=== PATIENT | female | born 1950 | race Caucasian/White ===

== ENCOUNTER 2024-01-21 13:58 | Outpatient (CLI) | payer MEDICARE, SELFPAY ==
--- NOTE | ~2024-01-21 | MM_ITS ---
EXAMINATION: MM screening nayla BI w kathryn HISTORY: Screening TECHNIQUE: Craniocaudal and mediolateral oblique 3-D tomosynthesis images were obtained and synthetic 2-D images were generated. CAD analysis was submitted and interpreted. COMPARISON: 07/13/2019 BREAST PARENCHYMAL COMPOSITION: There are scattered areas of fibroglandular density. FINDINGS: There is no evidence of suspicious mass, calcification, or architectural distortion to sugg est malignancy in either breast. There has been no suspicious interval change. IMPRESSION: 1. No mammographic evidence of malignancy. 2. Recommend routine screening mammography in one year. BI-RADS Category 1: Negative Reviewed, dictated and finalized at location B.
== END 2024-01-21 13:59 | disposition home or self-care (01) ==
PROVIDERS: PCP Family Medicine; Visit Provider Family Medicine
DX: Z12.31 Encounter for screening mammogram for malignant neoplasm of breast (principal)
CPT/HCPCS: 77063; 77067

== ENCOUNTER 2025-01-22 10:14 | Emergency (ER) | payer MEDICARE, SELFPAY ==
--- NOTE | ~2025-01-22 | CT_ITS ---
CLINICAL INDICATION: Right-sided low back pain, with history of kidney stones COMPARISON: None. TECHNIQUE: Multiple contiguous axial images of the abdomen and pelvis were performed without the admi nistration of intravenous contrast The dose-length product (DLP) was 851.19 mGy-cm. Automated exposure control and iterative reconstruction technique were employed. FINDINGS/OBSERVATIONS: Visualized lower thorax: Left-sided pleural thickening. The remainder of the bilateral lung bases are clear. The heart is of normal size, without significant pericardial effusion. Small hiatal hernia with circumferential mural thickening is present. Liver: The liver demonstrates homogeneous attenuation and is not enlarged. Gallbladder and biliary system: The gallbladder is only minimally distended, and otherwise unremarkable. Pancreas: Limited evaluation of the pancreas secondary to the lack of intravenous contrast. Spleen: The spleen demonstrates homogeneous attenuation and is not enlarged. Kidneys: 3 mm nonobstructing stone within the lower pole of the right kidney. 2 mm nonobstructing stone within the upper pole of the right kidney. The remainder of the bilateral kidneys are otherwise unremarkable, without hydronephrosis or addition al renal calculi. Adrenal glands: Unremarkable. Gastrointestinal tract: Colonic diverticulosis without surrounding inflammatory change. Appendix: The air-filled appendix is of normal caliber (axial series, images 102 through 121). Vasculature: Calcified atherosclerotic disease without aneurysmal dilatation. Lymph nodes: Limited evaluation without intravenous contrast. Pelvic structures: The bladder is decompressed, limiting evaluation. The uterus is either surgically absent or markedly atrophic. Body wall and musculoskeletal: Age-appropriate degenerative disease within the lower thoracic and lumbosacral spines. IMPRESSION: Nonobstructing subcentimeter calculi within the right kidney without hydronephrosis. Reviewed, dictated and finalized at location A. IMPRESSION: Nonobstructing subcentimeter calculi within the right kidney without hydronephr osis.
[2025-01-22 10:25] VITALS: BP 121/78; PULSE 64; RESP 16; TEMP 36.9; O2SAT 98
--- OUTSIDE RECORDS SUMMARY | 2025-01-22 10:28 | XMS_ITS | CONTINUITY OF CARE DOCUMENT ---
Author Name janie lima Address Unknown Organization [facility] Address [address] [place] [address] Phone [phone] Care Team Providers Care Order Dispatcher Chief Name Role Phone Salinas Al MD Unavailable DANNY ECHOLS MD Unavailable DANNY ECHOLS MD Unavailable PROBLEMS Condition Status Date Provider Notes Cardiology examination active Salinas reynoso MD Hyperlipidemia active Salinas Al MD HTN essential active Salinas Al MD Prediabetes active Salinas Al MD GERD active Salinas Al MD Syncope active Salinas Al MD Hypothyroidism active Salinas Al MD Dyspnea on exertion active Salinas Kelly Chest pain active Salinas Al MD Abnormal EKG active Salinas Al MD Former smoker active Salinas Al MD COPD active aSlinas Al MD Lung nodule, right middle lung active Gustavo Al MD Fatigue active Salinas Al MD ENCOUNTERS Date Type Provider Location Encounter Diag nosis 02/02 - 02/02 In-person encounter Office Visit Salinas Al MD [facility] Fatigue 08/05 - 08/05 In-person encounter Office Visit Salinas Al MD [facility] 02/04 - 02/04 In-person encounter Office Visit Salinas Al MD [facility] 08/06 - 08/06 In-person encounter Office Visit Salinas Al MD [facility] Lung nodule, right middle lung 05/11 - 05/14 In-person encounter Office Visit Salinas Al MD [facility] COPD 03/15 - 03/19 In-person encounter Office Visit Salinas Al MD [facility] Cardiology examinationHyperlipidemiaHTN essentialPrediabetesGERDSyncopeHypothyroidismDyspnea on exertionChest painAbnormal EKGFormer smoker VITAL SIGNS Date Observation Value Provider Body Mass Index (Ratio) 33.41 kg/m2 Claudia Al MD blood pressure, cuff size large Cullen jessesamreen Renteria blood pressure, diastolic 62 mm[facility]Hg[facility][Hg] Tab [facility] oxygen saturation, oximetry 95 % [facility] respiratory rate E&M 12 /min [facility] pulse rate 65 /min [facility] weight E&M 207 [lb_av] [facility] [in_i] [facility] Body Mass Index (Ratio) 33.25 kg/m2 Claudia Al MD blood pressure, diastolic 71 mm[Hg] Kathie [facility] blood pressure, systolic 135 mm[Hg] Meghan [facility] blood pressure, diastolic 71 mm[Hg] Kathie Log blood pressure, systolic 135 mm[Hg] [facility] blood pressure, diastolic 71 mm[Hg] [facility] blood pressure, systolic 135 mm[Hg] [facility] blood pressure, cuff size regular Dale hendrickson Renteria blood pressure, diastolic 71 mm[Hg] Dale hendrickson Renteria blood pressure, systolic 135 mm[Hg] Wilner Renteria oxygen saturation, oximetry 98 % Patience Renteria respiratory rate E&M 16 /min Patience juarez pulse rate 64 /min Patience Renteria weight E&M 206 [lb_av] Patience Renteria height E&M 66 [in_i] Patience Renteria Body Mass Index (Ratio) 33.89 kg/m2 Claudia Al MD pulse rate 75 /min Jinny Leger blood pressure, diastolic 54 mm[Hg] Richard Leger blood pressure, systolic 146 mm[Hg] Khushboo Leger weight E&M 210 [lb_av] Jinny Leger blood pressure, cuff size regular Richard Leger oxygen saturation, oximetry 96 % Jinny Leger respiratory rate E&M 18 /min Jinny Leger height E&M 66 [in_i] Jinny Leger Body Mass Index (Ratio) 33.63 kg/m2 Claudia Al MD blood pressure, diastolic 66 mm[Hg] St alecia Uribe blood pressure, systolic 134 mm[Hg] Eva Uribe oxygen saturation, oximetry 97 % Fiona Uribe pulse rate 64 /min Fionakobi Uribe respiratory rate E&M 16 /min Fiona hyde weight E&M 208.4 [lb_av] Fionakobi Uribe height E&M 66 [in_i] Fiona Uribe Body Mass Index (Ratio) 33.57 kg/m2 Claudia Al MD blood pressure, cuff size regular Emily Weston blood pressure, diastolic 85 mm[Hg] Emily Weston blood pressure, systolic 148 mm[Hg] Antonieta Weston respiratory rate E&M 18 /min Ashley Weston oxygen saturation, oximetry 97 % Ashley Weston pulse rate 73 /min Ashley Weston weight E&M 208 [lb_av] Ashley Weston height E&M 66 [in_i] Ashley Weston Body Mass Index (Ratio) 33.25 kg/m2 Claudia Al MD blood pressure, cuff size large Mariano rri Ahsan blood pressure, diastolic 69 mm[Hg] Mariano rri Ahsan blood pressure, systolic 119 mm[Hg] Leroy javi Foreman oxygen saturation, oximetry 95 % Africa Foreman respiratory rate E&M 16 /min Africa jennings pulse rate 58 /min Africa Ellis lder weight E&M 206 [lb_av] [facility] Ellis lder height E&M 66 [in_i] Africa Ellis lder ALLERGIES No Known Drug Allergies HISTORY OF MEDICATION USE Medication Status Instructions Dates Provider Indications Com ments carvedilol 6.25 mg tablet active TAKE 1 TABLET BY MOUTH TWICE DAILY Erica Rusadam Spiriva Respimat 1.25 mcg/actuation mist active Salinas Al MD Myrbetriq 50 mg tablet extended release 24 hr active Salinas Al MD ezetimibe 10 mg tablet active TAKE 1 TABLET BY MOUTH EVERY DAY Zach Nolasco ezetimibe 10 mg tablet completed Take 1 tablet by mouth once a day - Richard Chase albuterol sulfate 90 mcg/actuation HFA aerosol inhaler completed - Nell Renteria amlodipine-benaz epril 10-20 mg capsule active Take 1 capsule by mouth once a day Salinas Al MD atorvastatin 40 mg tablet active Take 1 tablet by mouth once a day Africa Foreman carvedilol 6.25 mg tablet completed Take 1 tablet by mouth twice a day - Richard stevan celecoxib 200 mg capsule active Take 1 capsule by mouth twice a day Africa Foreman escitalopram oxalate 5 mg tablet active Take 1 tablet by mouth once a day Africa Foreman gabapentin 300 mg capsule active Take 1 capsule by mouth every night Africa Foreman levothyroxine 88 mcg tablet active Take 1 tablet by mouth once a day Africa Foreman metformin 500 mg tablet active Take 1 tablet by mouth twice a day Africa Foreman omeprazole 40 mg capsule,delayed release(DR/EC) active Take 1 capsule by mouth once a day Africa Foreman phentermine 37.5 mg tablet active as directed TAKE 1 TABLET BY MOUTH EVERY DAY Africa Foreman aspirin 81 mg tablet,delayed release (DR/EC) active Take 1 tablet by mouth once a day Africa Foreman SOCIAL HISTORY Date Observation Value Provider smoking status Never smoker Salinas reynoso MD smoking status Never smoker Patience Renteria number of grandchildren Salinas Al MD social history E&M S moking History: Ninoska padilla has never smoked. Salinas Al MD social history reviewed E&M revi ewed - no changes required Salinas Al MD smoking status Never smoker Jinny Leger social history E&M S moking History: Ninoska padilla is a former smoker. Salinas Al MD social history reviewed E&M revi ewed - no changes required Salinas Al MD smoking, year quit 2009 Fionakobi Chaudhari is number of years as a smoker 40 a Fiona Uribe smoking history, tot al pack/day 1.5 ppd Fiona Uribe cigarette use yes Fiona Uribe smoking status Former smoker Fiona Uribe social history E&M S moking History: Ninoska padilla is a former smoker. Salinas Al MD smoking, year quit 2009 Salinas waterman MD number of years as a smoker 40 a Salinas Al MD smoking history, tot al pack/day 1.5 ppd Salinas Al MD cigarette use yes Salinas Al MD smoking status Former smoker Salinas Colon ra, MD social history reviewed E&M revi ewed - no changes required Salinas Al MD social history E&M S moking History: Ninoska padilla is a former smoker. Salinas Al MD social history reviewed E&M revi ewed - no changes required Salinas Al MD number of years as a smoker 40 a Africa Hammnia smoking history, tot al pack/day 1.5 ppd Africa Foreman smoking, year quit 2009 Africa Hanseldarshana cai cigarette use yes Africa Pfeiffer elder smoking status Former smoker Africa whiteelder INSURANCE PROVIDERS Payer name Policy type / Coverage type Duncan red republican ID A[employer] [facility] ADVANTAGE PLAN 2 (HMO-POS) Medicare [id number] ADVANCE DIRECTIVES Name Date DISCUSSED - NO DECISION MADE TREATMENT PLAN Date Name Performer [id number],S, Salinas Colon ra, [place] [id number],S, Salinas Colon ra, [place] [id number],S, Salinas Colon ra[place] [id number],B, Salinas Colon ra[place] [id number],W, B P today: 146/54 P rior BP: 134/66 (08/06/2022) Her updated medication list for this problem includes: Carvedilol 6.25 Mg Tablet (Carvedilol) ..... Take 1 tablet by mouth twice a day Amlodipine-benazepril 5-20 Mg Capsule (Amlodipine-benazepril) ..... Take 1 capsule by mouth once a day Aspirin 81 Mg Tablet,delayed Release (dr/ec) (Aspirin) ..... Take 1 tablet by mouth once a day Salinas Al MD [id number],S, H er updated medication list for this problem includes: Ezetimibe 10 Mg Tablet (Ezetimibe) ..... Take 1 tablet by mouth once a day Atorvastatin 40 Mg Tablet (Atorvastatin) ..... Take 1 tablet by mouth once a day Salinas Al MD [id number],BSalinas ra, MD [id number],SSalinas ra, [place] [id number],BSalinas ra, [place] [id number],B, B P today: 134/66 P rior BP: 148/85 (05/11/2022) Her updated medication list for this problem includes: Carvedilol 6.25 Mg Tablet (Carvedilol) ..... Take 1 tablet by mouth twice a day Amlodipine-benazepril 5-20 Mg Capsule (Amlodipine-benazepril) ..... Take 1 capsule by mouth once a day Aspirin 81 Mg Tablet,delayed Release (dr/ec) (Aspirin) ..... Take 1 tablet by mouth once a day Salinas Al MD [id number],BSalinas ra, MD [id number],S, H er updated medication list for this problem includes: Ezetimibe 10 Mg Tablet (Ezetimibe) ..... Take 1 tablet by mouth once a day Atorvastatin 40 Mg Tablet (Atorvastatin) ..... Take 1 tablet by mouth once a day Salinas Al MD [id number],SSalinas ra, MD [id number],SSalinas ra, MD [id number],SSalinas ra, MD [id number],W, B P today: 148/85 P rior BP: 119/69 (03/15/2022) Her updated medication list for this problem includes: Amlodipine-benazepril 5-20 Mg Capsule (Amlodipine-benazepril) ..... Take 1 capsule by mouth once a day Carvedilol 3.125 Mg Tablet (Carvedilol) ..... Take 1 tablet by mouth twice a day Aspirin 81 Mg Tablet,delayed Release (dr/ec) (Aspirin) ..... Take 1 tablet by mouth once a day Salinas Al MD [id number],B, H er updated medication list for this problem includes: Amlodipine-benazepril 5-20 Mg Capsule (Amlodipine-benazepril) ..... Take 1 capsule by mouth once a day Carvedilol 3.125 Mg Tablet (Carvedilol) ..... Take 1 tablet by mouth twice a day Aspirin 81 Mg Tablet,delayed Release (dr/ec) (Aspirin) ..... Take 1 tablet by mouth once a day Salinas Al MD [id number],N, Salinas Colon ra, MD [id number],S, Salinas Colon ra, MD [id number],S, H er updated medication list for this problem includes: Amlodipine-benazepril 5-20 Mg Capsule (Amlodipine-benazepril) ..... Take 1 capsule by mouth once a day Carvedilol 3.125 Mg Tablet (Carvedilol) ..... Take 1 tablet by mouth twice a day Aspirin 81 Mg Tablet,delayed Release (dr/ec) (Aspirin) ..... Take 1 tablet by mouth once a day Salinas Al MD [id number],S, Salinas Colon ra, MD [id number],S, Salinas Colon ra, MD [id number],S, Salinas Colon ra, MD [id number],W, H er updated medication list for this problem includes: Amlodipine-benazepril 5-20 Mg Capsule (Amlodipine-benazepril) ..... Take 1 capsule by mouth once a day Carvedilol 3.125 Mg Tablet (Carvedilol) ..... Take 1 tablet by mouth twice a day Aspirin 81 Mg Tablet,delayed Release (dr/ec) (Aspirin) ..... Take 1 tablet by mouth once a day Salinas Al MD [id number],SSalinas ra, MD [id number],S, H er updated medication list for this problem includes: Atorvastatin 40 Mg Tablet (Atorvastatin) ..... Take 1 tablet by mouth once a day Salinas Al MD [id number],S, B P today: 119/69 Her updated medication list for this problem includes: Amlodipine-benazepril 5-20 Mg Capsule (Amlodipine-benazepril) ..... Take 1 capsule by mouth once a day Carvedilol 3.125 Mg Tablet (Carvedilol) ..... Take 1 tablet by mouth twice a day Aspirin 81 Mg Tablet,delayed Release (dr/ec) (Aspirin) ..... Take 1 tablet by mouth once a day Salinas Al MD Cardiology:11/13/23: Total CHOL 154, LDL 61, HDL 63, trigs 148. A1C was 6.6%. CMP was unremarkable. Her updated medication list for this problem includes: Ezetimibe 10 Mg Tablet (Ezetimibe) ..... Take 1 tablet by mouth every day Atorvastatin 40 Mg Tablet (Atorvastatin) ..... Take 1 tablet by mouth once a day Salinas Al MD Cardiology: W ill check home sleep study. She complains of fatigue and has already been worked up from a cardiovascular standpoint. Salinas Al MD Cardiology: B P today: 120/62 P rior BP: 135/71 (08/05/2023) Her updated medication list for this problem includes: Carvedilol 6.25 Mg Tablet (Carvedilol) ..... Take 1 tablet by mouth twice daily Amlodipine-benazepril 10-20 Mg Capsule (Amlodipine-benazepril) ..... Take 1 capsule by mouth once a day Aspirin 81 Mg Tablet,delayed Release (dr/ec) (Aspirin) ..... Take 1 tablet by mouth once a day Salinas Al MD Cardiology: N o evidence of nodule on recent lung CT from July Salinas Al MD Cardiology Salinas Kelly Cardiology Salinas Kelly Cardiology Salinas Kelly Cardiology: H er updated medication list for this problem includes: Ezetimibe 10 Mg Tablet (Ezetimibe) ..... Take 1 tablet by mouth every day Atorvastatin 40 Mg Tablet (Atorvastatin) ..... Take 1 tablet by mouth once a day Salinas Al MD Cardiology: B P today: 135/71 P rior BP: 146/54 (02/04/2023) Her updated medication list for this problem includes: Amlodipine-benazepril 10-20 Mg Capsule (Amlodipine-benazepril) ..... Take 1 capsule by mouth once a day Carvedilol 6.25 Mg Tablet (Carvedilol) ..... Take 1 tablet by mouth twice a day Aspirin 81 Mg Tablet,delayed Release (dr/ec) (Aspirin) ..... Take 1 tablet by mouth once a day Salinas Al MD Cardiology Salinas Kelly Cardiology Salinas Kelly Cardiology Salinas Kelly Cardiology Salinas Kelly Cardiology Salinas Kelly Cardiology: B P today: 146/54 P rior BP: 134/66 (08/06/2022) Her updated medication list for this problem includes: Carvedilol 6.25 Mg Tablet (Carvedilol) ..... Take 1 tablet by mouth twice a day Amlodipine-benazepril 5-20 Mg Capsule (Amlodipine-benazepril) ..... Take 1 capsule by mouth once a day Aspirin 81 Mg Tablet,delayed Release (dr/ec) (Aspirin) ..... Take 1 tablet by mouth once a day Salinas Al MD Cardiology: H er updated medication list for this problem includes: Ezetimibe 10 Mg Tablet (Ezetimibe) ..... Take 1 tablet by mouth once a day Atorvastatin 40 Mg Tablet (Atorvastatin) ..... Take 1 tablet by mouth once a day Salinas Al MD Cardiology Salinas Kelly Cardiology Salinas Kelly Cardiology Salinas Kelly Cardiology: B P today: 134/66 P rior BP: 148/85 (05/11/2022) Her updated medication list for this problem includes: Carvedilol 6.25 Mg Tablet (Carvedilol) ..... Take 1 tablet by mouth twice a day Amlodipine-benazepril 5-20 Mg Capsule (Amlodipine-benazepril) ..... Take 1 capsule by mouth once a day Aspirin 81 Mg Tablet,delayed Release (dr/ec) (Aspirin) ..... Take 1 tablet by mouth once a day Salinas Al MD Cardiology Salinas Kelly Cardiology: H er updated medication list for this problem includes: Ezetimibe 10 Mg Tablet (Ezetimibe) ..... Take 1 tablet by mouth once a day Atorvastatin 40 Mg Tablet (Atorvastatin) ..... Take 1 tablet by mouth once a day Salinas Al MD Cardiology Salinas Kelly Cardiology Salinas Kelly Cardiology Salinas Kelly Cardiology: B P today: 148/85 P rior BP: 119/69 (03/15/2022) Her updated medication list for this problem includes: Amlodipine-benazepril 5-20 Mg Capsule (Amlodipine-benazepril) ..... Take 1 capsule by mouth once a day Carvedilol 3.125 Mg Tablet (Carvedilol) ..... Take 1 tablet by mouth twice a day Aspirin 81 Mg Tablet,delayed Release (dr/ec) (Aspirin) ..... Take 1 tablet by mouth once a day Salinas Al MD Cardiology: H er updated medication list for this problem includes: Amlodipine-benazepril 5-20 Mg Capsule (Amlodipine-benazepril) ..... Take 1 capsule by mouth once a day Carvedilol 3.125 Mg Tablet (Carvedilol) ..... Take 1 tablet by mouth twice a day Aspirin 81 Mg Tablet,delayed Release (dr/ec) (Aspirin) ..... Take 1 tablet by mouth once a day Salinas Al MD Cardiology Salinas Kelly Cardiology Salinas Kelly Cardiology: H er updated medication list for this problem includes: Amlodipine-benazepril 5-20 Mg Capsule (Amlodipine-benazepril) ..... Take 1 capsule by mouth once a day Carvedilol 3.125 Mg Tablet (Carvedilol) ..... Take 1 tablet by mouth twice a day Aspirin 81 Mg Tablet,delayed Release (dr/ec) (Aspirin) ..... Take 1 tablet by mouth once a day Salinas Al MD Cardiology Salinas Kelyl Cardiology Salinas Kelly Cardiology Salinas Kelly Cardiology: H er updated medication list for this problem includes: Amlodipine-benazepril 5-20 Mg Capsule (Amlodipine-benazepril) ..... Take 1 capsule by mouth once a day Carvedilol 3.125 Mg Tablet (Carvedilol) ..... Take 1 tablet by mouth twice a day Aspirin 81 Mg Tablet,delayed Release (dr/ec) (Aspirin) ..... Take 1 tablet by mouth once a day Salinas Al MD Cardiology Salinas Kelly Cardiology: H er updated medication list for this problem includes: Atorvastatin 40 Mg Tablet (Atorvastatin) ..... Take 1 tablet by mouth once a day Salinas Al MD Cardiology: B P today: 119/69 Her updated medication list for this problem includes: Amlodipine-benazepril 5-20 Mg Capsule (Amlodipine-benazepril) ..... Take 1 capsule by mouth once a day Carvedilol 3.125 Mg Tablet (Carvedilol) ..... Take 1 tablet by mouth twice a day Aspirin 81 Mg Tablet,delayed Release (dr/ec) (Aspirin) ..... Take 1 tablet by mouth once a day Salinas Al MD Date Name Sleep Study Home Low Dose Lung CT LIPID PANEL LIPID PANEL Low Dose Lung CT Low Dose Lung CT DLCO - 85196 FRC - 54062 FVC - 84703 Monitor - Telemetry (Mobile Cardiac) Stress Regadenoson Complete Echo TSH, 3RD GENERATION W/REFLEX TO FT4 LIPID PANEL HISTORY OF PROCEDURES Procedure Date Procedure Name Provider Procedure Notes S tatus Counseling LDCT Salinas Al MD co mpleted Counseling LDCT Salinas Al MD co mpleted Spirometry Salinas Al MD complet ed FVC / MVV with bronchodilator - 88657 Salinas Al MD completed 6 minute walk test Salinas Al MD completed FRC - 16310 Salinas Al MD comple sara SpO2 w/o 6min walk/titration Salinas Al MD completed SVC - 54847 Salinas Al MD comple sara DLCO - 75967 Salinas Al MD compl eted Counseling LDCT Salinas Al MD co mpleted EKG Salinas Al MD complet ed
--- OUTSIDE RECORDS SUMMARY | 2025-01-22 10:29 | XMS_ITS | Continuity of Care Document ---
Author Organization [facility] Address [address] [place] [address] Phone Care Team Providers Care Felt Cementer Name Role Phone Meryl Kay MD Unavailable Unavailable Allergies, Adverse Reactions, Alerts Substance Reaction Status Criticality niacin Unknown Active No Information Medications Medication Instructions Dosage Effective Dates (start - stop) Status Comments prednisolone acetate 1 % eye drops,suspension instill 1 drop by ophthalmic route 4 times every day into affected eye(s) 1 drop - Active lisinopril 20 mg tablet for Hypertension - Active carvedilol 6.25 mg tablet for Hypertension - Active metformin 500 mg tablet for Diabetes - Act aidan levothyroxine 100 mcg tablet for Thyroid - Active atorvastatin 80 mg tablet for Cholesterol - Active citalopram 10 mg tablet for Depression - A ctive aspirin 81 mg chewable tablet chew 1 tablet by oral route every day for Heart health 81 MG - Active Procedures Procedure Date POSTOP FOLLOW-UP VISIT POSTOP FOLLOW-UP VISIT POSTOP FOLLOW-UP VISIT POSTOP FOLLOW-UP VISIT POSTOP FOLLOW-UP VISIT CATARACT SURG W/IOL, 1 STAGE CATARACT SURG W/IOL, 1 STAGE POSTOP FOLLOW-UP VISIT POSTOP FOLLOW-UP VISIT CATARACT SURG W/IOL, 1 STAGE CATARACT SURG W/IOL, 1 STAGE PRED BROM Shipping Fee OPHTHALMIC DIAGNOSTIC IMAGING-[facility] Jul NEW PT COMP E&M ESTABLISHED PAT INTER ROUTINE EXAM Oct-0 REFRACTION NEW PATIENT COMPLEX ROUTINE EXAM 2016 Advance Directives Directive Yes / No Effective Date File Name No Information Encounters Encounter Description Practice Location Reason(s) For Visit Diagnoses Date Provider Providers Copied on Encounter [facility], [address], [place], [place], [id number], [place] tel:[phone] [facility] [place] vision is improved (chief complaint) Presence of intraocular lens Apr-1 9-201 9 Eliza Meryl. [address], [place], [place], [id number], [place]. tel:[phone] Referring Provider: Salinas Fowler [address] [place], [address]. tel:[phone] [facility], [address], [place], [place], [id number], [place] tel:[phone] [facility] [place] Post Op Examination (chief complaint)fl uctuating vision (chief complaint) Presence of intraocular lens Mar-2 0-201 9 Eliza Meryl. [address], [place], [place], [id number], [place]. tel:[phone] Referring Provider: Salinas Fowler, [address] [facility], [place], [address]. tel:[phone] [facility], [address], [place], [place], [id number], [place] tel:[phone] [facility] [place] Post Op Examination (chief complaint)gl ossy vision x 2 days (chief complaint) Presence of intraocular lens Mar-0 6-201 9 Eliza Meryl. [address], [place], [place], [id number], [place]. tel:[phone] Referring Provider: Salinas Fowler, [address] [facility], [place], [address]. tel:[phone] [facility], [address], [place], [place], [id number], [place] tel:[phone] [facility] [place] no complaints (chief complaint) Presence of intraocular lens 9 Eliza Sheth. [address], [place], [place], [id number], [place]. tel:[phone] Referring Provider: Salinas Fowler, [address] [facility], [place], [address]. tel:[phone] [facility], [address], [place], [place], [id number], [place] tel:[phone] [facility] no complaints (chief complaint) Presence of intraocular lens 9 Eliza Sheth. [address], [place], [place], [id number], [place]. tel:[phone] [facility], [address], [place], [place], [id number], [place] tel:[phone] [facility] Age-related nuclear cataract, left eye 9 Eliza Sheth. [address], [place], [place], [id number], [place]. tel:[phone] Referring Provider: Mercedes Arias, [address], [place], [address] tel:[phone] [facility], [address], [place], [place], [id number], [place] tel:[phone] [facility] Age-related nuclear cataract, bilateral 9 [facility]. [address], [place], [place], [id number], [place]. tel:[phone] Referring Provider: Meryl Bajwa, [address], [place], [address]. tel:[phone] [facility], [address], [place], [place], [id number], [place] tel:[phone] [facility] no complaints (chief complaint) Presence of intraocular lens 9 Eliza Sheth. [address], [place], [place], [id number], [place]. tel:[phone] Referring Provider: Salinas Fowler, [address], [place], [address]. tel:[phone] [facility], [address], [place], [id number], [place] tel:[phone] [facility] blurry vision (chief complaint) Presence of intraocular lens 9 Eliza Sheth. [address], [place], [place], [id number], [place]. tel:[phone] [facility], [address], [place], [place], [id number], [place] tel:[phone] [facility] trouble with glare (chief complaint)tr ouble reading (chief complaint)tr ouble seeing at night (chief complaint) Age-related nuclear cataract, right eye 9 Eliza Sheth. [address], [place], [place], [id number], [place]. tel:[phone] Referring Provider: Mercedes Arias, [address], [place], [address] tel:[phone] [facility], [address], [place], [place], [id number], [place] tel:[phone] [facility] Age-related nuclear cataract, bilateral 9 [facility]. [address], [place], [place], [id number], [place]. tel:[phone] Referring Provider: Meryl Bajwa, [address], [place], [address]. tel:[phone] [facility], [address], [place], [place], [id number], [place] tel:[phone] [facility] No Information [facility]. [address], [place], [place], [id number], [place]. tel:[phone] [facility], [address], [place], [place], [id number], [place] tel:[phone] [facility] No Information No Information Referring Provider: Salinas Fowler [address] [facility], [place], [address]. tel:[phone] NEW PT COMP E&M [facility], [address], [place], [place], [id number], [place] tel:[phone] [facility] cloudy vision (chief complaint)gl ivette all the time (chief complaint)di abetes (chief complaint)cl oudy vision (chief complaint)gl ivette all the time (chief complaint)di abetes (chief complaint) Age-related nuclear cataract, bilateralPre sbyopiaType 2 diabetes mellitus without complication sMacular cyst, hole, or pseudohole, right eyeVitreomac ular adhesion, left eyeBenign neoplasm of left choroid 8 Eliza Sheth. [address], [place], [place], [id number], [place]. tel:[phone] Referring Provider: Salvatore Montoya S , [place], [address]. tel:[phone] [facility], [address], [place], [place], [id number], [place] tel:[phone] [facility] dry eye F/U (chief complaint)dr corrales eye F/U (chief complaint) Punctate keratitis, bilateral Oct-0 7 No Information Referring Provider: Salinas Fowler [address] [place], [address]. tel:[phone] [facility], [address], [place], [place], [id number], [place] tel:[phone] [facility] Diabetes Type II (chief complaint)fi lm over eyes (chief complaint)gl are at night (chief complaint)Di abetes Type II (chief complaint)fi lm over eyes (chief complaint)gl are at night (chief complaint) PresbyopiaAg e-related nuclear cataract, bilateralTyp e 2 diabetes mellitus without complication sPunctate keratitis, bilateral Sep-2 7 No Information Referring Provider: Salinas Fowler [address] [place], [address]. tel:[phone] Family History Family Member Type Diagnosis Age At Onset Problem (finding) Family history of Diabe davina mellitus Immunizations Vaccine Date Status Comments Flu (split) (3 yrs or older) administered Source: Other Provider Payers Payer name Insurance type Covered republican ID Authoriza tion(s) No Information Social History Type Description Quantity Date Captured Comments Sex Female Smoking Status No Information Chief Complaint And Reason For Visit From encounter dated '12/12/2018 08:50'. vision is improved (chief complaint) Reason For Referral Reason For Referral No Information Plan Of Treatment Date Type Action Status Goal Tobacco cessation counseling completed Goal Tobacco cessation counseling completed Referral Referred To: León Michaels [address] [place], [id number] Ordered: Referrals: [facility]. León Michaels Evaluate and treat Appointment date/timeframe: 08/20/2018 ordered History Of Present Illness Encounter Date Complaint History Of Prese nt Illness cloudy vision The 68 Year old female presents for evaluation of cloudy vision in the right eye and left eye. The onset was gradual. It affects both near and far vision. The symptom is constant. It occurs with no pattern. The condition is significant. The condition is described as blurring. In addition, the condition is associated with daily activity and chores. Glucose/A1C Doctor checksPCP Dr. Salinas Sexton . diabetes The patient comp lains of diabetes It affects distance vision. The symptom is constant. It occurs with no pattern. Sees Dr. Fowler . glares all the time The patient complains of glares all the time in the right eye and left eye. The onset was gradual. It affects OU. The symptom is frequent. It occurs with no pattern. The condition is significant. The condition is described as having glare. In addition,the condition is associated with bright light. dry eye F/U The 67 Year old female presents for evaluation of dry eye F/U in the right eye and left eye. Pt has been compliant with ATs. Eyes are getting better. Pt in interested in cat surgery. Would like to speak with a cat counselor after seeing the doctor.. film over eyes The patient comp lains of film over eyes in the right eye and left eye. It affects OU. The symptom is frequent. It occurs in the morning. The condition is mild. glare at night The patient comp lains of glare at night in the right eye and left eye. It affects both near and far vision. The symptom is frequent. It occurs at night. The condition is mild. The condition is described as having glare. Diabetes Type II The 67 Year old female presents for evaluation of Diabetes Type II in the right eye and left eye. It affects Unsure. The symptom is constant. Last A1C was 6.1. Functional Status Date Functional Assessmen t No Information Instructions Date Instruction Additional Infor mation Schedule cat sx OU Related to Ag e-related nuclear cataract, bilateral Refer to retinal spe cialist for clearance prior to cat sx OU Related to Macular cyst, hole, or pseudohole, right eye Impression/Plan Related to Vitre omacular adhesion, left eye Impression/Plan Related to Age-r elated nuclear cataract, bilateral Impression/Plan Related to Presb yopia Impression/Plan Related to Type 2 diabetes mellitus without complications Impression/Plan Related to Macul ar cyst, hole, or pseudohole, right eye Impression/Plan Related to Benig n neoplasm of left choroid - --monitor--AT's qid ou Related to Punctate keratitis, bilateral - Rtc in 6mon forVCMaliha w/ i Related to Punctate keratitis, bilateral - New glasses Rx was given today . Related to Presbyopia - pt decline cat sx Related to A ge-related nuclear cataract, bilateral - Emphasized blood s ugar control. LEtter sent to Dr. Fowler Related to Type 2 diabetes mellitus without complications - Patient instructed to use artificial tears as needed. Related to Punctate keratitis, bilateral - 3 weeks for follow up on drye eys with dr mcmanus Related to Type 2 diabetes mellitus without complications Assessments Type Assessment Date assessment Presence of intraocular lens Nov Patient Care Teams Name Effective Dates (start - stop) Status Members No Information
--- OUTSIDE RECORDS SUMMARY | 2025-01-22 10:29 | XMS_ITS | Continuity of Care Document ---
Author Organization [facility] Address [address] [place] [address] Phone Care Team Providers Care Tool Smith Name Role Phone No Information Unavailable Unavailable Advance Directives Directive Yes / No Effective Date File Name No Information Encounters Encounter Description Practice Location Reason(s) For Visit Diagnoses Date Provider Providers Copied on Encounter [facility], [address], [place], [place], [id number] , [phone] No Information 0 0 No Information [facility], [address], [place], [place], [id number] , tel:[phone] [facility] Calculus of kidneyFrequency of micturitionUrgency of urination Apr-2 6201 6 Seun Beltre. [address], [id number], [place]. tel:[phone] Referring Provider: Alexsander Banks, [address], [address] . tel:[phone] Family History Family Member Type Diagnosis Age At Onset No Information Payers Payer name Insurance type Covered constitution party ID Authorhoracea darío(s) [facility] [id number] Social History Type Description Quantity Date Captured Comments Sex Female Smoking Status No Information Chief Complaint And Reason For Visit No Information Reason For Referral Reason For Referral No Information History Of Present Illness Encounter Date Complaint History Of Prese nt Illness No Information Functional Status Date Functional Assessmen t No Information Instructions Date Instruction Additional Infor mation No Information Assessments Type Assessment Date No Information Patient Care Teams Name Effective Dates (start - stop) Status Members No Information
--- OUTSIDE RECORDS SUMMARY | 2025-01-22 10:29 | XMS_ITS | Data Portability ---
Author Organization [place] [facility], Main Office Address [address] [place] [address] Care Team Providers Care Buffet Attendant Name Role Phone DANNY DUBON Primary Care Provider [phone] DANNY DUBON Referring Provider Assessment Encounter Date Assessment Date Assessment LastModified by Organization Details LastModified Time 08/30/2023 08/30/2023 HPI: Patient returns. She is here for cortisone injection left knee. Last shot was 3 months ago. She gets excellent relief for over 2 months. She has moderate to moderately severe medial osteoarthritis. She wishes to continue injections. Physical exam: 73-year-old female alert pleasant. She has mild effusion left knee. Range of motion is from 0-135 degrees. Qvcv-pa-[id number] tenderness over medial joint line palpation. No increased swelling in either extremity. After ChloraPrep was used on the skin 20 mg of Kenalog and 3 cc of 0.5% ropivacaine was injected into the left knee. Impression: 73 year female who has moderately severe medial compartment osteoarthritis left knee. Shots continue to give her good relief. We will see her in 3 months. [email or web address] Not available 08/30/2023 12:01:38 12/09/2023 12/09/2023 HPI: Patient returns. She is here for cortisone injection into the left knee. Last shot was 3 months ago. She gets about 2 months good relief. She has severe medial compartment osteoarthritis in left knee. She wished to have another injection today. Physical exam 73-year-old female she has a moderate effusion left knee. Range motion is from 0-135 degrees. Moderate tenderness over the medial joint line to palpation. Mild patellofemoral grind. No increased swelling in either lower extremity. Alcohol prep 20 mg Kenalog and 3 cc of 0.5% ropivacaine was injected into the left knee. Impression: 73-year-old female who has severe medial compartment osteoarthritis left knee. Shots continue to give her good relief. We will see her in 3 months. [email or web address] Not available 12/09/2023 15:32:32 Plan of Treatment Reminders Order Date Submit Date Provider Last Modified By Organization Details Last Modified Time Details Appointments None recorded. Lab urinalysis, dipstick 2023 024 [facility] [address], [place], [address], 4 11:20:39 urinalysis complete, reflex culture [address], [address] [place], [address], 4 11:21:49 lipid panel, serum [address], [address] [place], [address], 4 11:23:27 TSH + free T4, serum [address], [address] [place], [address], 4 11:23:40 CBC [address], [address] [place], [address], 4 11:23:52 HbA1c (hemoglobin A1c), blood [address], [address] [place], [address], 4 11:22:14 CMP, serum or plasma [address], [address] [place], [address], 4 11:22:30 HbA1c (hemoglobin A1c), blood 2023 024 [email or web address] Not available 4 00:21:40 BMP, serum or plasma 2023 024 [email or web address] Not available 4 20:44:41 lipid panel, serum 2023 024 [email or web address] Not available 4 20:44:46 hepatic function panel, serum 2023 024 [email or web address] Not available 4 20:44:56 CBC w/ auto diff 2023 [email or web address] Not available 4 19:41:29 TSH, serum or plasma 2023 024 [email or web address] Not available 4 20:49:19 Referral neurologist referral - Please call patient to schedule an appointment . Thank you. 2023 024 [email or web address] Will Anderson MD, 3 [facility], [address], [address], 4 09:17:29 hand surgeon referral - Please call patient to schedule an appointment . 2023 024 [email or web address] [facility], [address], [place], [address], 4 09:16:28 Procedures injection/a spiration joint/bursa (PROC) - in office procedure, administere d by provider 2023 024 [email or web address] In-Office Order, Internal Use Only DO Not Attach Compendium DO Not Attach Compendium, Do Not Delete/merge, [id number] 4 14:13:13 injection/a spiration joint/bursa (PROC) - in office procedure, administere d by provider 2023 024 [email or web address] In-Office Order, Internal Use Only DO Not Attach Compendium DO Not Attach Compendium, Do Not Delete/merge, [id number] 4 11:33:11 Surgeries None recorded. Imaging MAMMO, screening, digital, bilateral - *Please call pt to schedule* [address] (Imaging), [address] [facility] [address] [place] [address], [phone], 4 09:40:17 DEXA - *Please call pt to schedule* [address] (Imaging), [address] [facility] [address], [place], [address], 4 09:40:17 Medication Orders Ozempic 0.25 mg or 0.5 mg (2 mg/3 mL) subcutaneou s pen injector 2023 024 [facility] #[id number], [address] [facility], [place], [place], [id number], 4 11:03:25 Ozempic 0.25 mg or 0.5 mg (2 mg/3 mL) subcutaneou s pen injector 2023 024 [id number], [address] [facility], [place], [place], [id number], 4 10:46:15 Kenalog 10 mg/mL suspension for injection 2023 024 [id number] Not available 4 06:54:18 Marcaine (PF) 0.5 % (5 mg/mL) injection solution 2023 024 [email or web address] Not available 4 09:31:48 Kenalog 10 mg/mL suspension for injection 2023 024 [email or web address] [facility] #[id number], [address], [place], [place], [id number], 4 08:15:58 ropivacaine (PF) 5 mg/mL (0.5 %) injection solution 2023 024 [email or web address] [facility] #[id number], [address], [place], [place], [id number], 4 08:08:37 Patient TargetsNo targets recorded. Patient InstructionsNo instructions recorded. Reason for Referral Hand Surgeon Referral for Bi lateral thumb pain Please call patient to schedule an appointment. Referring Physician: Danny Dubon [facility], Encounter Date: 11/13/2023 Neurologist Referral for Une xplained recurrent falls Please call patient to schedule an appointment. Thank you. Referring Physician: Danny Dubon [facility], Encounter Date: 11/13/2023 Results Created Date Observation Date Name Description Value Unit Range Abnormal Flag Note LastModifiedBy Organization Detail LastModifiedTime 11/13/19 24 11/13/2023 CBC/C OMPLE TE BLD COUNT W/DIF F white blood cells 7.0 x10'3 /uL 4.2-10 .8 Not Available [facility] (Lab) [address] [place], [address], 11/13/2023 19:41:29 11/13/19 24 11/13/2023 CBC/C OMPLE TE BLD COUNT W/DIF F red blood cells 4.96 x10'6 /uL 3.80-5 .20 Not Available [facility] (Lab) [address] [place], [address], 11/13/2023 19:41:29 11/13/19 24 11/13/2023 CBC/C OMPLE TE BLD COUNT W/DIF F hemoglobin 13.2 g/dL 12.0-1 5.6 Not Available [facility] (Lab) [address] [place], [address], 11/13/2023 19:41:29 11/13/19 24 11/13/2023 CBC/C OMPLE TE BLD COUNT W/DIF F hematocrit 42.1 % 35.7-4 5.7 Not Available [facility] (Lab) [address] [place], [address], 11/13/2023 19:41:29 11/13/19 24 11/13/2023 CBC/C OMPLE TE BLD COUNT W/DIF F mean red cell volume 84.9 fL 82.0-9 9.0 Not Available [facility] (Lab) [address] [place], [address], 11/13/2023 19:41:29 11/13/19 24 11/13/2023 CBC/C OMPLE TE BLD COUNT W/DIF F mean red cell hemoglobin 26.6 pg 27.0-3 3.0 low Not Available [facility] (Lab) [address] [place], [address], 11/13/2023 19:41:29 11/13/19 24 11/13/2023 CBC/C OMPLE TE BLD COUNT W/DIF F mean RBC HGB concentratio n 31.4 g/dL 31.0-3 6.0 Not Available [facility] (Lab) [address] [place], [address], 11/13/2023 19:41:29 11/13/19 24 11/13/2023 CBC/C OMPLE TE BLD COUNT W/DIF F red cell distribution width 15.1 % 11.8-1 5.5 Not Available [facility] (Lab) [address] [place], [address], 11/13/2023 19:41:29 11/13/19 24 11/13/2023 CBC/C OMPLE TE BLD COUNT W/DIF F platelets 297 x10'3 /uL 150-40 0 Not Available [facility] (Lab) [address] [place], [address], 11/13/2023 19:41:29 11/13/19 24 11/13/2023 CBC/C OMPLE TE BLD COUNT W/DIF F mean platelet volume 10.7 fL 9.0-12 .4 Not Available [facility] (Lab) [address] [place], [address], 11/13/2023 19:41:29 11/13/19 24 11/13/2023 CBC/C OMPLE TE BLD COUNT W/DIF F neutrophils 62.3 % 39.0-7 2.0 Not Available [facility] (Lab) [address] [place], [address], 11/13/2023 19:41:29 11/13/19 24 11/13/2023 CBC/C OMPLE TE BLD COUNT W/DIF F lymphocytes 23.8 % 16.0-4 7.0 Not Available [facility] (Lab) [address] [place], [address], 11/13/2023 19:41:29 11/13/19 24 11/13/2023 CBC/C OMPLE TE BLD COUNT W/DIF F monocytes 8.3 % 5.0-12 .0 Not Available [facility] (Lab) [address] [place], [address], 11/13/2023 19:41:29 11/13/19 24 11/13/2023 CBC/C OMPLE TE BLD COUNT W/DIF F eosinophils 4.6 % 1.0-7. 0 Not Available [facility] (Lab) [address] [place], [address], 11/13/2023 19:41:29 11/13/19 24 11/13/2023 CBC/C OMPLE TE BLD COUNT W/DIF F basophils 0.4 % 0.0-2. 0 Not Available [facility] (Lab) [address] [place], [address], 11/13/2023 19:41:29 11/13/19 24 11/13/2023 CBC/C OMPLE TE BLD COUNT W/DIF F immature granulocytes 0.6 % 0.00-0 .50 high Not Available [facility] (Lab) [address] [place], [address], 11/13/2023 19:41:29 11/13/19 24 11/13/2023 CBC/C OMPLE TE BLD COUNT W/DIF F neutrophils, absolute count 4.34 x10'3 /uL 1.5-8. 0 Not Available [facility] (Lab) [address] [place], [address], 11/13/2023 19:41:29 11/13/19 24 11/13/2023 CBC/C OMPLE TE BLD COUNT W/DIF F lymphocytes, absolute count 1.66 x10'3 /uL 1.07-3 .43 Not Available [facility] (Lab) [address] [place], [address], 11/13/2023 19:41:29 11/13/19 24 11/13/2023 CBC/C OMPLE TE BLD COUNT W/DIF F monocytes, absolute count 0.58 x10'3 /uL 0.29-0 .99 Not Available [facility] (Lab) [address] [place], [address], 11/13/2023 19:41:29 11/13/19 24 11/13/2023 CBC/C OMPLE TE BLD COUNT W/DIF F eosinophils, absolute count 0.32 x10'3 /uL 0.02-0 .53 Not Available [facility] (Lab) [address] [place], [address], 11/13/2023 19:41:29 11/13/19 24 11/13/2023 CBC/C OMPLE TE BLD COUNT W/DIF F basophils, absolute count 0.03 x10'3 /uL 0.01-0 .08 Not Available [facility] (Lab) [address] [place], [address], 11/13/2023 19:41:29 11/13/19 24 11/13/2023 CBC/C OMPLE TE BLD COUNT W/DIF F immature granulocytes ,absolute 0.04 x10'3 /uL 0.00-0 .05 Not Available [facility] (Lab) [address] [place], [address], 11/13/2023 19:41:29 11/13/19 24 11/13/2023 CBC/C OMPLE TE BLD COUNT W/DIF F nucleated red blood cells 0.0 % -0 Not Available [facility] (Lab) [address] [place], [address], 11/13/2023 19:41:29 11/13/19 24 11/13/2023 CBC/C OMPLE TE BLD COUNT W/DIF F NRBC# 0.00 x10'3 /uL Not Available [facility] (Lab) [address] [place], [address], 11/13/2023 19:41:29 11/13/19 24 11/13/2023 BASIC METAB OLIC PANEL sodium 137 mmol/ L 137-14 5 Not Available [facility] (Lab) [address] [place], [address], 11/13/2023 20:44:40 11/13/19 24 11/13/2023 BASIC METAB OLIC PANEL potassium 4.0 mmol/ L 3.5-5. 1 Not Available [facility] (Lab) [address] [place], [address], 11/13/2023 20:44:40 11/13/19 24 11/13/2023 BASIC METAB OLIC PANEL chloride 104 mmol/ L 98-107 Not Available [facility] (Lab) [address] [place], [address], 11/13/2023 20:44:40 11/13/19 24 11/13/2023 BASIC METAB OLIC PANEL carbon dioxide 29 mmol/ L 22-30 Not Available [facility] (Lab) [address] [place], [address], 11/13/2023 20:44:40 11/13/19 24 11/13/2023 BASIC METAB OLIC PANEL anion gap 8.0 mmol/ L 14-22 low Not Available [facility] (Lab) [address] [place], [address], 11/13/2023 20:44:40 11/13/19 24 11/13/2023 BASIC METAB OLIC PANEL glucose 234 mg/dL 70-99 high Not Available [facility] (Lab) [address] [place], [address], 11/13/2023 20:44:40 11/13/19 24 11/13/2023 BASIC METAB OLIC PANEL BUN 13 mg/dL 8-19 Not Available [facility] (Lab) [address] [place], [address], 11/13/2023 20:44:40 11/13/19 24 11/13/2023 BASIC METAB OLIC PANEL creatinine 0.74 mg/dL 0.66-1 .25 Not Available [facility] (Lab) [address] [place], [address], 11/13/2023 20:44:40 11/13/19 24 11/13/2023 BASIC METAB OLIC PANEL GFR >60 Refer ence Range : [place] ge GFR Healt hy Adult : >60 mL/mi n/1.7 3 m2 Chron ic Kidne y Disea se: 15-60 mL/mi n/1.7 3 m2 Kidne y Failu re: <15/m L/min /1.73 m2 www.n iddk. nih.g ov The MDRD study equat ion has not been valid ated in child ranjeet <18 years of age; pregn ant women ; the elder ly >85 years of age; or in some racia l or ethni c subgr oups, such as Hispa nics. Outsi de the valid ated david eters , estim ated GFR is less accur ate, requi ring clini amber judgm ent on a case- by-ca se basis . Clini amber inter preta tion for other races and ages must be made by the clini rylan. The MDRD study equat ion has not been valid ated for the evalu ation of serum creat inine relat ed to nutri [place]ie l statu s or medic ation usage . For perso ns <18 years of age, a pedia tric GFR calcu lator is avail able on the [facility] websi te: https ://sear w.kid sarah.o rg/pr ofess ional s/kdo qi/gf r_cal culat or Not Available [facility] (Lab) [address] [place], [address], 11/13/2023 20:44:40 11/13/19 24 11/13/2023 BASIC METAB OLIC PANEL calcium 9.4 mg/dL 8.4-10 .2 Not Available [facility] (Lab) [address] [place], [address], 11/13/2023 20:44:40 11/13/19 24 11/13/2023 LIPID PANEL cholesterol 154 mg/dL 140-19 9 NIH NATALIYA NSUS RECOM MENDA TION FOR QUINN STERO L: ADULT CHILD LOW RISK: <200 <170 BORDE RLINE : <200- 239 ----- HIGH RISK: >240 >200 Not Available [facility] (Lab) [address] [place], [address], 11/13/2023 20:44:46 11/13/19 24 11/13/2023 LIPID PANEL triglyceride s 148 mg/dL 0-150 NIH NATALIYA NSUS REPOR T RECOM MENDA TION FOR TRIGL YCERI ALEJANDRO: ADULT CHILD LOW RISK: <150 ----- BODER LINE: 150-1 99 ----- HIGH RISK: >200 ----- Not Available [facility] (Lab) [address] [place], [address], 11/13/2023 20:44:46 11/13/19 24 11/13/2023 LIPID PANEL HDL cholesterol 63 mg/dL 40- Not Available [facility] (Lab) [address] [place], [address], 11/13/2023 20:44:46 11/13/19 24 11/13/2023 LIPID PANEL LDL cholesterol, calculated 61 mg/dL 0-130 NIH NATALIYA NSUS REPOR T RECOM MENDA TIONS FOR LDL: ADULT CHILD LOW RISK <130 <110 (OPTI MAL LDL) <100 ----- TAMAR RLINE : 130-1 59 ----- HIGH RISK: >160 >130 A TRIGL YCERI DE RESUL T >400 INVAL IDATE S THE CALCU LATIO N FOR LDL FRACT IONAT ION - THE LDL RESUL T WILL NOT BE REPOR YAMIL. Not Available [facility] (Lab) [address] [place], [address], 11/13/2023 20:44:46 11/13/19 24 11/13/2023 HEPAT IC/LI YOVANY PANEL alkaline phosphatase 83 U/L 38-126 Not Available [facility] (Lab) [address] [place], [address], 11/13/2023 20:44:56 11/13/19 24 11/13/2023 HEPAT IC/LI YOVANY PANEL alanine aminotransfe rase 26 U/L 0-35 Not Available [facility] (Lab) [address] [place], [address], 11/13/2023 20:44:56 11/13/19 24 11/13/2023 HEPAT IC/LI YOVANY PANEL aspartate aminotransfe rase 47 U/L 15-37 high Not Available [facility] (Lab) [address] [place], [address], 11/13/2023 20:44:56 11/13/19 24 11/13/2023 HEPAT IC/LI YOVANY PANEL bilirubin, total 0.50 mg/dL 0.20-1 .30 Not Available [facility] (Lab) [address] [place], [address], 11/13/2023 20:44:56 11/13/19 24 11/13/2023 HEPAT IC/LI YOVANY PANEL bilirubin, conjugated (direct) 0.00 mg/dL 0.00-0 .30 Not Available [facility] (Lab) [address] [place], [address], 11/13/2023 20:44:56 11/13/19 24 11/13/2023 HEPAT IC/LI YOVANY PANEL biliurubin,u ncong. (indirect) 0.40 mg/dL 0.00-1 .1 Not Available [facility] (Lab) [address] [place], [address], 11/13/2023 20:44:56 11/13/19 24 11/13/2023 HEPAT IC/LI YOVANY PANEL total protein 6.5 g/dL 6.3-8. 2 Not Available [facility] (Lab) [address] [place], [address], 11/13/2023 20:44:56 11/13/19 24 11/13/2023 HEPAT IC/LI YOVANY PANEL albumin 4.1 g/dL 3.0-4. 4 Not Available [facility] (Lab) [address] [place], [address], 11/13/2023 20:44:56 11/13/19 24 11/13/2023 HEPAT IC/LI YOVANY PANEL globulin 2.4 g/dL 2.6-4. 2 low Not Available [facility] (Lab) [address] [place], [address], 11/13/2023 20:44:56 11/13/19 24 11/13/2023 HEPAT IC/LI YOVANY PANEL A/G ratio 1.7 ratio 1.0-2. 0 Not Available [facility] (Lab) [address] [place], [address], 11/13/2023 20:44:56 11/13/19 24 11/13/2023 TSH thyroid-stim ulating hormone 1.850 uIU/m L 0.465- 4.680 Not Available [facility] (Lab) [address] [place], [address], 11/13/2023 20:49:19 11/13/19 24 11/13/2023 HEMOG LOBIN A1C HA1C 6.6 % 4.0-6. 0 high Diabe davina Scree nona Crite aprli: <5.7% Consi stent with absen ce of diabe davina 5.7-6 .4% Consi stent with incre ased risk for diabe davina (pred iabet es) >OR=6 .5% Consi stent with diabe davina REFER ENCE: Diabe davina Care 2016, 39(Wong ppl.1 ):s13 -s22 Not Available [facility] (Lab) [address] [place], [address], 11/13/2023 21:20:25 02/03/20 24 02/03/2024 CBC/C OMPLE TE BLD COUNT W/DIF F white blood cells 9.8 x10'3 /uL 4.2-10 .8 Not Available [facility] (Lab) [address] [place], [address], 02/03/2024 13:01:30 02/03/20 24 02/03/2024 CBC/C OMPLE TE BLD COUNT W/DIF F red blood cells 4.82 x10'6 /uL 3.80-5 .20 Not Available [facility] (Lab) [address] [place], [address], 02/03/2024 13:01:30 02/03/20 24 02/03/2024 CBC/C OMPLE TE BLD COUNT W/DIF F hemoglobin 12.9 g/dL 12.0-1 5.6 Not Available [facility] (Lab) [address] [place], [address], 02/03/2024 13:01:30 02/03/20 24 02/03/2024 CBC/C OMPLE TE BLD COUNT W/DIF F hematocrit 40.5 % 35.7-4 5.7 Not Available [facility] (Lab) [address] [place], [address], 02/03/2024 13:01:30 02/03/20 24 02/03/2024 CBC/C OMPLE TE BLD COUNT W/DIF F mean red cell volume 84.0 fL 82.0-9 9.0 Not Available [facility] (Lab) [address] [place], [address], 02/03/2024 13:01:30 02/03/20 24 02/03/2024 CBC/C OMPLE TE BLD COUNT W/DIF F mean red cell hemoglobin 26.8 pg 27.0-3 3.0 low Not Available [facility] (Lab) [address] [place], [address], 02/03/2024 13:01:30 02/03/20 24 02/03/2024 CBC/C OMPLE TE BLD COUNT W/DIF F mean RBC HGB concentratio n 31.9 g/dL 31.0-3 6.0 Not Available [facility] (Lab) [address] [place], [address], 02/03/2024 13:01:30 02/03/20 24 02/03/2024 CBC/C OMPLE TE BLD COUNT W/DIF F red cell distribution width 15.2 % 11.8-1 5.5 Not Available [facility] (Lab) [address] [place], [address], 02/03/2024 13:01:30 02/03/20 24 02/03/2024 CBC/C OMPLE TE BLD COUNT W/DIF F platelets 322 x10'3 /uL 150-40 0 Not Available [facility] (Lab) [address] [place], [address], 02/03/2024 13:01:30 02/03/20 24 02/03/2024 CBC/C OMPLE TE BLD COUNT W/DIF F mean platelet volume 10.1 fL 9.0-12 .4 Not Available [facility] (Lab) [address] [place], [address], 02/03/2024 13:01:30 02/03/20 24 02/03/2024 CBC/C OMPLE TE BLD COUNT W/DIF F neutrophils 63.0 % 39.0-7 2.0 Not Available [facility] (Lab) [address] [place], [address], 02/03/2024 13:01:30 02/03/20 24 02/03/2024 CBC/C OMPLE TE BLD COUNT W/DIF F lymphocytes 23.1 % 16.0-4 7.0 Not Available [facility] (Lab) [address] [place], [address], 02/03/2024 13:01:30 02/03/20 24 02/03/2024 CBC/C OMPLE TE BLD COUNT W/DIF F monocytes 9.2 % 5.0-12 .0 Not Available [facility] (Lab) [address] [place], [address], 02/03/2024 13:01:30 02/03/20 24 02/03/2024 CBC/C OMPLE TE BLD COUNT W/DIF F eosinophils 3.6 % 1.0-7. 0 Not Available [facility] (Lab) [address] [place], [address], 02/03/2024 13:01:30 02/03/20 24 02/03/2024 CBC/C OMPLE TE BLD COUNT W/DIF F basophils 0.4 % 0.0-2. 0 Not Available [facility] (Lab) [address] [place], [address], 02/03/2024 13:01:30 02/03/20 24 02/03/2024 CBC/C OMPLE TE BLD COUNT W/DIF F immature granulocytes 0.7 % 0.00-0 .50 high Not Available [facility] (Lab) [address] [place], [address], 02/03/2024 13:01:30 02/03/20 24 02/03/2024 CBC/C OMPLE TE BLD COUNT W/DIF F neutrophils, absolute count 6.16 x10'3 /uL 1.5-8. 0 Not Available [facility] (Lab) [address] [place], [address], 02/03/2024 13:01:30 02/03/20 24 02/03/2024 CBC/C OMPLE TE BLD COUNT W/DIF F lymphocytes, absolute count 2.26 x10'3 /uL 1.07-3 .43 Not Available [facility] (Lab) [address] [place], [address], 02/03/2024 13:01:30 02/03/20 24 02/03/2024 CBC/C OMPLE TE BLD COUNT W/DIF F monocytes, absolute count 0.90 x10'3 /uL 0.29-0 .99 Not Available [facility] (Lab) [address] [place], [address], 02/03/2024 13:01:30 02/03/20 24 02/03/2024 CBC/C OMPLE TE BLD COUNT W/DIF F eosinophils, absolute count 0.35 x10'3 /uL 0.02-0 .53 Not Available [facility] (Lab) [address] [place], [address], 02/03/2024 13:01:30 02/03/20 24 02/03/2024 CBC/C OMPLE TE BLD COUNT W/DIF F basophils, absolute count 0.04 x10'3 /uL 0.01-0 .08 Not Available [facility] (Lab) [address] [place], [address], 02/03/2024 13:01:30 02/03/20 24 02/03/2024 CBC/C OMPLE TE BLD COUNT W/DIF F immature granulocytes ,absolute 0.07 x10'3 /uL 0.00-0 .05 high Not Available [facility] (Lab) [address] [place], [address], 02/03/2024 13:01:30 02/03/20 24 02/03/2024 CBC/C OMPLE TE BLD COUNT W/DIF F nucleated red blood cells 0.0 % -0 Not Available [facility] (Lab) [address] [place], [address], 02/03/2024 13:01:30 02/03/20 24 02/03/2024 CBC/C OMPLE TE BLD COUNT W/DIF F NRBC# 0.00 x10'3 /uL Not Available [facility] (Lab) [address] [place], [address], 02/03/2024 13:01:30 02/03/20 24 02/03/2024 HEPAT IC/LI YOVANY PANEL alkaline phosphatase 66 U/L 38-126 Not Available [facility] (Lab) [address] [place], [address], 02/03/2024 14:31:38 02/03/20 24 02/03/2024 HEPAT IC/LI YOVANY PANEL alanine aminotransfe rase 23 U/L 0-35 Not Available [facility] (Lab) [address] [place], [address], 02/03/2024 14:31:38 02/03/20 24 02/03/2024 HEPAT IC/LI YOVANY PANEL aspartate aminotransfe rase 43 U/L 15-37 high Not Available [facility] (Lab) [address] [place], [address], 02/03/2024 14:31:38 02/03/20 24 02/03/2024 HEPAT IC/LI YOVANY PANEL bilirubin, total 0.60 mg/dL 0.20-1 .30 Not Available [facility] (Lab) [address] [place], [address], 02/03/2024 14:31:38 02/03/20 24 02/03/2024 HEPAT IC/LI YOVANY PANEL bilirubin, conjugated (direct) 0.00 mg/dL 0.00-0 .30 Not Available [facility] (Lab) [address] [place], [address], 02/03/2024 14:31:38 02/03/20 24 02/03/2024 HEPAT IC/LI YOVANY PANEL biliurubin,u ncong. (indirect) 0.30 mg/dL 0.00-1 .1 Not Available [facility] (Lab) [address] [place], [address], 02/03/2024 14:31:38 02/03/20 24 02/03/2024 HEPAT IC/LI YOVANY PANEL total protein 6.8 g/dL 6.3-8. 2 Not Available [facility] (Lab) [address] [place], [address], 02/03/2024 14:31:38 02/03/20 24 02/03/2024 HEPAT IC/LI YOVANY PANEL albumin 4.1 g/dL 3.0-4. 4 Not Available [facility] (Lab) [address] [place], [address], 02/03/2024 14:31:38 02/03/20 24 02/03/2024 HEPAT IC/LI YOVANY PANEL globulin 2.7 g/dL 2.6-4. 2 Not Available [facility] (Lab) [address] [place], [address], 02/03/2024 14:31:38 02/03/20 24 02/03/2024 HEPAT IC/LI YOVANY PANEL A/G ratio 1.5 ratio 1.0-2. 0 Not Available [facility] (Lab) [address] [place], [address], 02/03/2024 14:31:38 02/03/20 24 02/03/2024 BASIC METAB OLIC PANEL sodium 140 mmol/ L 137-14 5 Not Available [facility] (Lab) [address] [place], [address], 02/03/2024 14:31:44 02/03/20 24 02/03/2024 BASIC METAB OLIC PANEL potassium 4.7 mmol/ L 3.5-5. 1 Not Available [facility] (Lab) [address] [place], [address], 02/03/2024 14:31:44 02/03/20 24 02/03/2024 BASIC METAB OLIC PANEL chloride 110 mmol/ L 98-107 high Not Available [facility] (Lab) [address] [place], [address], 02/03/2024 14:31:44 02/03/20 24 02/03/2024 BASIC METAB OLIC PANEL carbon dioxide 26 mmol/ L 22-30 Not Available [facility] (Lab) [address] [place], [address], 02/03/2024 14:31:44 02/03/20 24 02/03/2024 BASIC METAB OLIC PANEL anion gap 8.7 mmol/ L 14-22 low Not Available [facility] (Lab) [address] [place], [address], 02/03/2024 14:31:44 02/03/20 24 02/03/2024 BASIC METAB OLIC PANEL glucose 109 mg/dL 70-99 high Not Available [facility] (Lab) [address] [place], [address], 02/03/2024 14:31:44 02/03/20 24 02/03/2024 BASIC METAB OLIC PANEL BUN 15 mg/dL 8-19 Not Available [facility] (Lab) [address] [place], [address], 02/03/2024 14:31:44 02/03/20 24 02/03/2024 BASIC METAB OLIC PANEL creatinine 0.73 mg/dL 0.66-1 .25 Not Available [facility] (Lab) [address] [place], [address], 02/03/2024 14:31:44 02/03/20 24 02/03/2024 BASIC METAB OLIC PANEL GFR >60 Refer ence Range : [place] ge GFR Healt hy Adult : >60 mL/mi n/1.7 3 m2 Chron ic Kidne y Disea se: 15-60 mL/mi n/1.7 3 m2 Kidne y Failu re: <15/m L/min /1.73 m2 www.n iddk. nih.g ov The MDRD study equat ion has not been valid ated in child ranjeet <18 years of age; pregn ant women ; the elder ly >85 years of age; or in some racia l or ethni c subgr oups, such as Hispa nics. Outsi de the valid ated david eters , estim ated GFR is less accur ate, requi ring clini amber judgm ent on a case- by-ca se basis . Clini amber inter preta tion for other races and ages must be made by the clini rylan. The MDRD study equat ion has not been valid ated for the evalu ation of serum creat inine relat ed to nutri anne-marie l statu s or medic ation usage . For perso ns <18 years of age, a pedia tric GFR calcu lator is avail able on the [facility] websi te: https :[email or web address] smith.cammie cain/pr ofess ional s/kdo qi/gf r_cal culat or Not Available [facility] (Lab) [address] [place], [address], 02/03/2024 14:31:44 02/03/20 24 02/03/2024 BASIC METAB OLIC PANEL calcium 9.7 mg/dL 8.4-10 .2 Not Available [facility] (Lab) [address] [place], [address], 02/03/2024 14:31:44 03/13/20 24 03/13/2024 urina lysis , dipst ick Leukocytes (reference range: negative olga/ l) Negati ve Not Available [address], [place], [address], 03/13/2024 10:27:44 03/13/20 24 03/13/2024 urina lysis , dipst ick Nitrite (reference rage: negative mg/dl) negati ve Not Available [address], [place], [address], 03/13/2024 10:27:44 03/13/20 24 03/13/2024 urina lysis , dipst ick Urobilinogen (reference range: 0.2-1 mg/dl) 1 Not Available [address] [address], [place], [address], 03/13/2024 10:27:44 03/13/20 24 03/13/2024 urina lysis , dipst ick Protein (reference range: negative mg/dl) Negati ve Not Available [address] [address], [place], [address], 03/13/2024 10:27:44 03/13/20 24 03/13/2024 urina lysis , dipst ick pH (reference range: 5-7) 5.0 Not Available [address], [place], [address], 03/13/2024 10:27:44 03/13/20 24 03/13/2024 urina lysis , dipst ick Blood (reference range: negative Chucho/ l) Negati ve Not Available [address], [place], [address], 03/13/2024 10:27:44 03/13/20 24 03/13/2024 urina lysis , dipst ick Specific [place] (reference range: 1.005-1.030) 1.030 Not Available [address], [place], [address], 03/13/2024 10:27:44 03/13/20 24 03/13/2024 urina lysis , dipst ick Ketone (reference range: negative mg/dl) Negati ve Not Available [address], [place], [address], 03/13/2024 10:27:44 03/13/20 24 03/13/2024 urina lysis , dipst ick Bilirubin (reference range: negative mg/dl) Negati ve Not Available [address], [place], [address], 03/13/2024 10:27:44 03/13/20 24 03/13/2024 urina lysis , dipst ick Glucose (reference range: negative mg/dl) 500 Not Available [address], [place], [address], 03/13/2024 10:27:44 03/13/20 24 03/13/2024 urina lysis , dipst ick Appearance Clear Not Available [facility] [address], [place], [address], 03/13/2024 10:27:44 03/13/20 24 03/13/2024 urina lysis , dipst ick Color Yellow Not Available [facility] [address], [place], [address], 03/13/2024 10:27:44 09/18/19 24 09/18/2023 LDCT, chest , for lung cance r scree nona No observ ation record ed. [email or web address] [facility] [address] [place], [address], 11/13/2023 08:16:43 01/21/20 24 01/21/2024 MAMMO , scree nona, digit al, bilat eral No observ ation record ed. [email or web address] [facility] [address], [place], [address], 03/24/2024 08:02:28 Result Notes None recorded. Problems Name Problem SNOMED Code Status Onset Date Resolution Date Notes Provider Name and Address Organization Details Recorded Time Depressive disorder 57400327 Active 2018 Not Available [facility] 4 10:35:29 Hypothyroi dism 74508662 Active 2018 Not Available [facility] 4 10:35:29 Pain of left knee joint 5637554734630 07 Active 2021 Not Available [facility] 4 10:35:29 Hyperlipid emia 76807938 Active 2018 Not Available [facility] 4 10:35:29 Diabetes mellitus 41740299 Active 2018 Not Available [facility] 4 10:35:29 Overactive urinary bladder 013929386 Active 2022 Not Available [facility] 4 10:35:29 Flatulence , eructation and gas pain 286429199 Active 2022 Not Available [facility] 4 10:35:29 Obesity 236015044 Active 2022 Not Available [facility] 4 10:35:29 Dyspnea 854939821 Active 2022 Not Available [facility] 4 10:35:29 Hyperglyce evert due to type 2 diabetes mellitus 9475129552153 09 Active 2022 Not Available [facility] 4 10:35:29 Flatulence symptom 782680719 Active 2022 Not Available [facility] 4 10:35:29 Osteoarthr itis of left knee joint 1599436602488 09 Active 2022 Not Available [facility] 4 10:35:29 Pain of bilateral hands 7550499767291 9109 Active 2022 Not Available [facility] 4 10:35:29 Essential hypertensi on 88036282 Active 2023 Danny Dubon MD [address], [place], [address] , [facility] 4 08:09:01 Unexplaine d recurrent falls 191551945 Active 2023 Danny Dubon MD [address], [place], [address] , [employer] [employer] [facility] 4 08:12:48 Bilateral thumb pain 5849643092575 9102 Active 2023 Danny Dubon MD [address], [place], [address] , [facility] 4 08:14:44 Liver enzymes level above reference range 684140582 Active 2023 Danny Dubon MD [address], [place], [address] , [employer] [facility] 4 08:37:00 Dysuria 84862449 Active 2023 ZITA Dixon-C [address] [facility] [address], [place], [address] , [facility] [employer] [facility] 4 10:27:12 Swelling of bilateral lower limbs 494652377 Active 2023 Avi Foss [employer]ER-C [address], [facility] [address], [place], [address] , [facility] [employer] [facility] 4 10:59:17 Notes:underactive thyroid di sease Some problems listed in Document: #[id number] could not be added to this patient's chart. Please review this document and add these problems to the patient's chart manually as needed. Problem Notes None recorded. Medical Equipment None Reported. Allergies Allergen ID Allergen Name Allergen Category Reaction Reaction Severity Criticality Documentation Date Start Date Code Code System Note Provider Name and Address Organization Details Recorded Time 00947 niacin medicatio n edema Not available Not available 10/24/2022 7393 RxNorm Not Available [facility] 3 21:01:21 Medications Name Sig Start Date Stop Date Status Note LastModified by Organization Details LastModified Time compounded medication Take 5ml QID PRN gas pain; do not exceed 20ml in at 24hr period 03/06 completed Not Available Not Available Not Available celecoxib 200 mg capsule TAKE 1 CAPSULE BY MOUTH TWICE DAILY NEEDED FOR PAIN active Not Available Not Available No t Available atorvastati n 40 mg tablet TAKE 1 TABLET BY MOUTH EVERY NIGHT AT BEDTIME active Not Available Not Available No t Available metformin 500 mg tablet TAKE 2 TABLETS BY MOUTH TWICE DAILY active Not Available Not Available No t Available atorvastati n 80 mg tablet TK 1 T PO QD 04/14 completed Not Available Not Available Not Available clonidine HCl 0.1 mg tablet TK 1 T PO Q 8 H FOR BP GREATER THAN 170/100 07/12 completed Not Available Not Available Not Available carvedilol 6.25 mg tablet TAKE 1 TABLET BY MOUTH TWICE DAILY active Not Available Not Available No t Available cefuroxime axetil 250 mg tablet TK 1 T PO BID FOR 10 DAYS 04/14 completed Not Available Not Available Not Available azithromyci n 250 mg tablet 07/12 /2023 completed Not Available Not Available Not Available ofloxacin 0.3 % eye drops INSTILL 1 DROP IN LEFT EYE FOUR TIMES DAILY FOR 5 DAYS 07/12 completed Not Available Not Available Not Available citalopram 10 mg tablet TK 1 T PO BID 12/16 completed Not Available Not Available Not Available meloxicam 15 mg tablet TAKE 1 TABLET BY MOUTH EVERY DAY NEEDED 03/06 completed Not Available Not Available Not Available lisinopril 20 mg tablet TK 1 T PO QD 04/14 completed Not Available Not Available Not Available Gas-X Extra Strength 125 mg capsule Dose: 1-2 tabs/caps PO prn; Max: 4 tabs or caps/24h 02/22 completed Not Available Not Available Not Available phentermine 37.5 mg tablet TAKE 1 TABLET BY MOUTH EVERY DAY active Not Available Not Available No t Available amlodipine 5 mg tablet TK 1 T PO QD 04/14 completed Not Available Not Available Not Available omeprazole 40 mg capsule,del ayed release TAKE 1 CAPSULE BY MOUTH EVERY DAY active Not Available Not Available No t Available tramadol 50 mg tablet TK 1 TO 2 TS PO Q 4 TO 6 H PRN P 04/14 completed Not Available Not Available Not Available carvedilol 3.125 mg tablet TAKE 1 TABLET BY MOUTH TWICE DAILY 07/12 completed Not Available Not Available Not Available levothyroxi ne 100 mcg tablet TAKE 1 TABLET BY MOUTH EVERY DAY 06/08 completed Not Available Not Available Not Available levothyroxi ne 88 mcg tablet TAKE 1 TABLET BY MOUTH EVERY DAY active Not Available Not Available No t Available amoxicillin 875 mg tablet Take 1 tablet every 12 hours by oral route for 7 days. active Not Available Not Available No t Available citalopram 20 mg tablet TAKE 1 TABLET BY MOUTH EVERY DAY 05/24 completed Not Available Not Available Not Available prednisolon e acetate 1 % eye drops,suspe nsion INSTILL 1 DROP INTO AFFECTED EYE 4 TIMES A DAY 04/14 completed Not Available Not Available Not Available Kenalog 10 mg/mL suspension for injection in office [address] [facility]: [phone] Not Available Not Available Not Available amlodipine 5 mg-benazepr il 20 mg capsule TAKE 1 CAPSULE BY MOUTH EVERY DAY 03/06 completed Not Available Not Available Not Available hydrocodone 7.5 mg-acetamin ophen 325 mg tablet TK 1 TO 2 TS PO Q 6 H PRN P 04/14 completed Not Available Not Available Not Available gabapentin 300 mg capsule TAKE 1 CAPSULE BY MOUTH EVERY NIGHT AT BEDTIME active Not Available Not Available No t Available levofloxaci n 750 mg tablet 04/14 completed Not Available Not Available Not Available methylpredn isolone 4 mg tablets in a dose pack TAKE DIRECTED 11/12 completed Not Available Not Available Not Available albuterol sulfate HFA 90 mcg/actuati on aerosol inhaler INHALE 2 PUFFS BY MOUTH EVERY 4 HOURS 08/30 completed Not Available Not Available Not Available oxybutynin chloride 5 mg tablet TAKE 1 TABLET BY MOUTH TWICE DAILY active Not Available Not Available No t Available losartan 100 mg tablet TK 1 T PO QD 04/14 completed Not Available Not Available Not Available fluticasone propionate 50 mcg/actuati on nasal spray,suspe nsion 04/14 completed Not Available Not Available Not Available loratadine 10 mg tablet TK 1 T PO D 05/24 completed Not Available Not Available Not Available tobramycin 0.3 %-dexametha sone 0.1 % eye drops,suspe nsion SHAKE LIQUID AND INSTILL 1 DROP IN LEFT EYE FOUR TIMES DAILY. START DROPS AFTER SURGERY 05/31 completed Not Available Not Available Not Available amlodipine 10 mg-benazepr il 20 mg capsule TAKE 1 CAPSULE BY MOUTH EVERY DAY active Not Available Not Available No t Available ezetimibe 10 mg tablet TAKE 1 TABLET BY MOUTH EVERY DAY active Not Available Not Available No t Available Marcaine (PF) 0.5 % (5 mg/mL) injection solution in office 2023 active Not Available Not Available Not Avai lable escitalopra m 5 mg tablet TAKE 1 TABLET BY MOUTH EVERY DAY active Not Available Not Available No t Available nitrofurant oin monohydrate /macrocryst als 100 mg capsule TAKE 1 CAPSULE BY MOUTH EVERY 12 HOURS FOR 7 DAYS 12/12 completed Not Available Not Available Not Available cholecalcif robles (vitamin D3) 1,250 mcg (50,000 unit) capsule TK ONE C PO ONCE WEEKLY FOR 8 WKS 04/14 completed Not Available Not Available Not Available diclofenac 1 % topical gel BOB 2 GRAMS EXT AA QID (shoulder s, elbows, wrists, hands active Not Available Not Available No t Available Prevnar 13 (PF) 0.5 mL intramuscul ar syringe ADM 0.5ML IM UTD active Not Available Not Available No t Available ropivacaine (PF) 5 mg/mL (0.5 %) injection solution in office 11/12 completed Not Available Not Available Not Available OneTouch Verio test strips TEST DAILY DIRECTED active Not Available Not Available No t Available Myrbetriq 50 mg tablet,exte nded release Take 1 tablet every day by oral route. active Not Available Not Available No t Available Virtussin AC 10 mg-100 mg/5 mL oral liquid TK 5ML PO Q 4 TO 6 H PRN. 04/14 completed Not Available Not Available Not Available Spiriva Respimat 2.5 mcg/actuati on solution for inhalation Inhale 2 puffs every day by inhalatio n route. 02/22 completed Not Available Not Available Not Available Spiriva Respimat 1.25 mcg/actuati on solution for inhalation INHALE 2 PUFFS BY MOUTH EVERY DAY active Not Available Not Available No t Available [employer] D 120 mg tablet,exte nded release TK 1 T PO BID. 04/14 completed Not Available Not Available Not Available OneTouch Delica Plus Lancet 33 gauge TEST DAILY DIRECTED active Not Available Not Available No t Available Fluzone High-Dose (PF) 180 mcg/0.5 mL intramuscul ar syringe PHARMACIS T ADMINISTE RED IMMUNIZAT ION ADMINISTE RED AT TIME OF DISPENSIN G 05/24 completed Not Available Not Available Not Available OneTouch Verio Reflect Meter USE TO TEST BLOOD SUGARS DAILY DIRECTED active Not Available Not Available No t Available Ozempic 0.25 mg or 0.5 mg (2 mg/3 mL) subcutaneou s pen injector INJECT 0.5 MG UNDER THE SKIN ONE DAY A WEEK active Not Available Not Available No t Available Vitals Date Recorded Body height Provider Name an d Address Organization Details Last Updated DateTime 08/30/2023 167.64 cm SAMY Rodas [place] - [employer] 08/30/2023 11:31:40 Date Recorded Body height Body mass index (BMI) Body weight Body temperature Heart rate Oxygen saturation Oxygen saturation in Arterial blood by Pulse oximetry Systolic blood pressure Diastolic blood pressure Provider Name and Address Organization Details Last Updated DateTime 4 167.64 cm 33.6 kg/m2 63301.2 1 g 97.2 [degF] 66 /min 95 % 95 % 138 mm[Hg] 74 mm[Hg] Karlo Valentin RN [facility] [employer] [facility] 4 08:00:24 Date Recorded Body height Provider Name an d Address Organization Details Last Updated DateTime 12/09/2023 167.64 cm [facility] 12/09/2023 14:11:22 Date Recorded Body height Body mass index (BMI) Body weight Body temperature Heart rate Oxygen saturation Oxygen saturation in Arterial blood by Pulse oximetry Systolic blood pressure Diastolic blood pressure Provider Name and Address Organization Details Last Updated DateTime 4 167.64 cm 32.8 kg/m2 28629.2 5 g 97.6 [degF] 63 /min 97 % 97 % 132 mm[Hg] 60 mm[Hg] Tegan Carson RN [facility] [employer] [facility] 4 10:22:31 Date Recorded Body height Body mass index (BMI) Body weight Body temperature Heart rate Oxygen saturation Oxygen saturation in Arterial blood by Pulse oximetry Systolic blood pressure Diastolic blood pressure Provider Name and Address Organization Details Last Updated DateTime 4 167.64 cm 32.3 kg/m2 09116.4 7 g 97.4 [degF] 62 /min 97 % 97 % 138 mm[Hg] 70 mm[Hg] Tegan Carson RN [facility] [employer] [facility] 4 10:43:17 Social History Question Answer Notes LastModified by Organizat ion Details LastModified Time Tobacco Smoking Status Former Smoker Not Available [employer] 10/24/2022 20:58:49 Do You Have An Advance Directive? No [id number] Information not available 10/24/2022 Are You Blind Or Do You Have Difficulty Seeing? No MIGRATION.[id number] Information not available 10/24/2022 What Is Your Level Of Caffeine Consumption? Occasional MIGRATION.[id number] 0773 Information not available 10/24/2022 In The 14 Days Before Symptom Onset, Have You Had Close Contact With A Laboratory-confir med COVID-19 While That Case Was Ill? No MIGRATION.[id number] Information not available 10/24/2022 In The 14 Days Before Symptom Onset, Have You Had Close Contact With A Person Who Is Under Investigation For COVID-19 While That Person Was Ill? No MIGRATION.[id number] 0178 Information not available 10/24/2022 Are You Deaf Or Do You Have Serious Difficulty Hearing? No MIGRATION.[id number] Information not available 10/24/2022 What Type Of Diet Are You Following? REGULAR [id number].[id number] Information not available 10/24/2022 When Did You Quit Smoking? 11-15yearssinc elastcigarette MIGRATION.[id number] 3424 Information not available 10/24/2022 Do You Have A Medical Power Of Manhole Builder? No MIGRATION.523122 6167 Information not available 10/24/2022 What Was The Date Of Your Most Recent Tobacco Screening? 06/07/2021 MIGRATION.[id number] 9721 Information not available 10/24/2022 Have You Recently Traveled Abroad? No MIGRATION.382690 7026 Information not available 10/24/2022 Do You Have Difficulty Walking Or Climbing Stairs? No MIGRATION.748930 5182 Information not available 10/24/2022 Are You Currently In School? No MIGRATION.426736 5079 Information not available 10/24/2022 Do You Have Any Dietary Restrictions? No MIGRATION.993911 3456 Information not available 10/24/2022 Sex: Unknown Functional Status Question Answer Note LastModified by Organizat ion Details LastModified Time Do you or have you ever used any other forms of tobacco or nicotine? No MIGRATION.[id number] 026 Information not available 10/24/2022 What is your level of alcohol consumption? None MIGRATION.[id number] 026 Information not available 10/24/2022 Do you have transportation difficulties? No MIGRATION.[id number] 026 Information not available 10/24/2022 Are you able to walk? YESWOREST MIGRATION.[id number] 026 Information not available 10/24/2022 Do you have difficulty doing errands alone? No MIGRATION.[id number] 026 Information not available 10/24/2022 Are you able to care for yourself? Yes MIGRATION.[id number] 026 Information not available 10/24/2022 Do you have difficulty dressing or bathing? No MIGRATION.[id number] 026 Information not available 10/24/2022 What is your exercise level? None MIGRATION.[id number] 026 Information not available 10/24/2022 Mental Status Question Answer Note LastModified by Organizat ion Details LastModified Time Do you have difficulty concentrating, remembering or making decisions? No MIGRATION.[id number] Information not available 10/24/2022 Family History Relationship Description Onset Age of this Age Resolved Age Notes LastModified by Organization Details LastModified Time Mother Diabetes mellitus [id number] Not available 10/24/2022 20:58:55 Sister Diabetes mellitus [id number] Not available 10/24/2022 20:58:55 Brother Diabetes mellitus MIGRATION.075 [id number] Not available 10/24/2022 20:58:55 Father Heart disease [email or web address] Not available 2022 11:26:08 Mother Heart disease [email or web address] Not available 2022 11:26:08 Sister Family history of malignant neoplasm [email or web address] Not available 2022 11:26:18 Medical History Condition Response BLINDNESS N KIDNEY STONES N MRSA N CARPAL TUNNEL SYNDROME N LUNG DISEASE/DISORDER N HISTORY OF DRUG ABUSE N RADIATION / CHEMOTHERAPY N COPD Y SPORTS INJURY N ANKLE PAIN N BLOOD DISEASES N SCHIZOPHRENIA N SHINGLES N BOWEL PROBLEMS N SHOULDER PAIN N DEPRESSION (INCLUDING POST ) N STROKE/TIA N KNEE PAIN N ULCERS N BENIGN PROSTATIC HYPERPLASIA N OBESITY N GERD/NAUSEA N ANEURYSM N URINARY/BLADDER/KIDNEY PROBLEMS N CORONARY ARTERY DISEASE (CAD) N ADDICTION CONCERNS N USE OF BLOOD THINNERS N SKIN PROBLEMS N EMPHYSEMA N MUSCLE,JOINT OR BONE PROBLEMS N DVT N STOMACH ULCERS N BLOOD CLOTS N USE OF NSAIDS N CONCUSSION OR SPINAL TRAUMA N NEUROPATHY N AIDS/HIV N FRACTURES N ELBOW PAIN N HYPERTENSION Y TOURETTE'S N ANXIETY DISORDER N Metal allergy N BLOOD TRANSFUSION N ANEMIA/BLOOD DISORDER N BIPOLAR DISORDER N BRONCHITIS N OSTEOARTHRITIS N TUBERCULOSIS N FOOT PROBLEM N HEART VALVE DISORDERS N ALLERGIES/HAYFEVER N SOFT TISSUE INJURY N INFECTIOUS DISEASE N HEART ARRHYTHMIA N INSOMNIA N RHEUMATOID ARTHRITIS N HIGH CHOLESTEROL / HYPERLIPIDEMIA N EDEMA N CHRONIC PAIN SYNDROME N CAROTID BLOCKAGE N BACK / NECK PROBLEMS N HAVE YOU BEEN HOSPITALIZED OR SEEN IN [facility] IN THE PAST YEAR ? N BURSITIS N HERNIATED DISC N DIALYSIS N FIBROMYALGIA N OSTEOPOROSIS N ARTHRITIS Y NO SIGNIFICANT PAST MEDICAL HISTORY N PERIPHERAL NEUROPATHY N DIABETES, TYPE Y HEARTBURN / REFLUX N HEPATITIS / LIVER DISEASE N GOUT N SLEEP DISORDER N ALZHEIMER'S DISEASE N HERPES N SEIZURES/EPILEPSY N HEADACHES/MIGRAINES N VASCULAR DISEASE N HIP PAIN N Blood Disorder N DIZZINESS N HEAD TRAUMA OR INJURY N HEART DISEASE/HEART PROBLEMS N MULTIPLE SCLEROSIS N CARDIAC ARRHYTHMIA N CANCER: SPECIFY N ANESTHESIA COMPLICATIONS N ATRIAL FIBRILLATION N AUTOIMMUNE DISEASE N Gynecological History Statement/Question Response Current Control Method Menopause Date of Last Colonoscopy Obstetrics History GPAL:G 1 P 0 0 0 0 Immunizations Vaccine Type Date Status Note Provider Nam e and Address Organization Details Recorded Time Influenza, high-dose, quadrivalent, PF 2 completed Not Available [facility] 09/18/2023 10:35:30 Pneumococcal conjugate PCV 13 1 completed Not Available [facility] 09/18/2023 10:35:30 Influenza, high-dose, quadrivalent, PF 1 completed Not Available [facility] 09/18/2023 10:35:29 Influenza, high-dose, quadrivalent, PF 0 completed Not Available [facility] 09/18/2023 10:35:30 pneumococcal polysaccharide PPV23 0 completed Not Available [facility] 09/18/2023 10:35:30 Past Encounters Encounter ID Performer Location Encounter Start Date Encounter Closed Date Diagnosis/Indication Diagnosis SNOMED-CT Code Diagnosis ICD10 Code Diagnosis Note [id number] Danny Dubon MD [facility] [place] [address] [facility] [facility] [place] [place] [address] 06/07/2021 00:00:00 06/16/2021 10:22:45 [id number] Danny Dubon MD [facility] [place] [address] [facility] [place] [address] 12/12/2021 00:00:00 12/22/2021 10:58:57 [id number] EVELYN Clay [facility] Primary [facility] [place] [address] [place] [address] 02/23/2022 00:00:00 02/23/2022 10:50:04 [id number] Roney Feng MD [facility] [address] [place] [address] 05/24/2022 00:00:00 05/24/2022 11:58:00 [id number] Danny Dubon MD [facility] Primary Care [facility] [address] [facility] [place] [address] 07/12/2022 00:00:00 07/12/2022 14:38:57 [id number] Danny Dubon MD [facility] Primary Care [facility] [address] [facility] [address] [place] [address] 08/10/2022 00:00:00 08/10/2022 10:13:38 [id number] Martin Castellanos MD [facility] [address] [facility] [address] [place] [address] 08/29/2022 00:00:00 08/29/2022 17:13:20 [id number] ZITA Smith [facility] Primary [facility] [address] [facility] [address] [place] [address] 11/09/2022 16:36:59 11/09/2022 17:33:40 Overactive urinary bladder [id number] N32.81 ChronicImp roved with MyrbetriqW ill give samples and refill Flatulence , eructation and gas pain 293546176 R14.1 R14.2 R14.3 New problemPt to call sister for name of the medication and then call us for rx. Hyperlipidemia 25949360 E78.5 Z79.899 Discussed need for regular exercise, increase intake of water/vege tables/fib er. Decrease the amount of greasy/fat ty/fried foods in diet. Consider/s tart taking a daily fish oil supplement . Hypothyroidism 23742289 E03.9 Diabetes mellitus 071694 09 E11.9 RqeqvzsG0J 6.6 (07/12/22) ; 7.0 (11/09/22)D iscussed need for regular exercise, increase intake of water/vege tables/fib er. Decrease intake of carbs, especially white rice/pasta /flour/christine ad/sugar. Obesity 819587223 E66.9 Not improved despite report of dieting/li festyle changes.Ad vised eat 3 meals daily with 1-2 healthy snacks, eliminate caloric drinks, no grazing btw meals, reduce packaged foods, portion control, modificati on of cooking style, low fat/low sugar items, 30 minutes of exercise at least 3x/week, reduce emotional/ stress eating, increase fruits/veg etables, take 15-20 minutes to eat.Encour aged pt to keep food diary for the next 2 weeks. Try to keep daily calorie count btw 0559-5936 calories. Gave meal planning handout. May need to consider referral to nib inspector/ nutritioni st as well.Ok to resume phentermin e as directed. Reviewed risk of abuse/misu se. Pt agrees to take only as directed and guard from theft. Dyspnea 242930463 R06.00 Chronic, recurrentE ncouraged to use rescue inhaler more frequently when symptomati c.Instruct ed on correct inhaler use. Avoid any triggers such as dust, chemicals, smoke. With continued sx, may need to start Montelukas t or try combo inhaler. [id number] ZITA Smith [facility] [address] [place] [address] 11/21/2022 12:39:20 11/21/2022 14:13:33 Hyperglycemia due to type 2 diabetes mellitus [id number] 20493 E11.65 LpwmfemW0U 6.6 (07/12/22) ; 7.0 (11/09/22)D iscussed need for regular exercise, increase intake of water/vege tables/fib er. Decrease intake of carbs, especially white rice/pasta /flour/christine ad/sugar.I ncrease metformin to 500mg (2 tabs) BIDMay consider addition of GLP-1 in the future. Obesity 387521317 E66.9 Not improved despite report of dieting/li festyle changes.Ad vised eat 3 meals daily with 1-2 healthy snacks, eliminate caloric drinks, no grazing btw meals, reduce packaged foods, portion control, modificati on of cooking style, low fat/low sugar items, 30 minutes of exercise at least 3x/week, reduce emotional/ stress eating, increase fruits/veg etables, take 15-20 minutes to eat.Encour aged pt to keep food diary for the next 2 weeks. Try to keep daily calorie count btw 7343-7925 calories. Gave meal planning handout last visit. May need to consider referral to nib inspector/ nutritioni st as well.Curry jazmyne phentermin e as directed. Reviewed risk of abuse/misu se. Pt agrees to take only as directed and guard from theft.Sinc e pt is diabetic, may consider the addition of GLP-1 to aid weight loss efforts and reduce blood sugars. Flatulence , eructation and gas pain 709232504 R14.1 R14.2 R14.3 No improvemen t since last visitNew rx for Gas-X Extra Strength 125mg cap per pt request. Hyperlipidemia 25487889 E78.5 Z79.899 StableTrig s 162 (11/09/22)D iscussed need for regular exercise, increase intake of water/vege tables/fib er. Decrease the amount of greasy/fat ty/fried foods in diet. Consider taking a daily fish oil supplement . Hypothyroidism 41137436 E03.9 StableTSH wnl (11/09/22)C ontinue levothyrox ine 88mcg daily [id number] Roney Feng MD [facility]_[address] [address] 11/22/2022 10:03:39 11/22/2022 11:02:43 Osteoarthritis of left knee joint 2145235091 63557 M17.12 [id number] Roney Feng MD [facility] [address] [facility] [address] [place] [address] 02/22/2023 10:39:46 02/22/2023 12:06:21 Osteoarthritis of left knee joint 7228180262 08151 M17.12 [id number] Danny Dubon MD [facility] [address] [facility] [address] [place] [address] 03/06/2023 10:36:27 03/06/2023 11:24:57 Hypothyroidism 38648843 E03.9 Diabetes mellitus 806199 09 E11.9 Pre-surger y evaluation 657571692 Z01.818 Scheduled for 03/22/23.Sh maliha is followed by cardiology (Dr. Al), states he does need to complete clearance unless any other concerns. EKG overall normal in office.Lab s ordered for routine care.Based on visit today, pt. considered low risk and can proceed with surgery. Obesity 775103521 E66.9 Down 6lbs since last visit. She is currently only taking 1/2 tablet.Con tinue weight loss efforts. [id number] Roney Feng MD [facility] [address] [place] [address] 05/31/2023 11:04:53 05/31/2023 12:10:19 Osteoarthritis of left knee joint 0781359675 57480 M17.12 [id number] Roney Feng MD [facility] [address] [place] [address] 08/30/2023 11:18:31 08/30/2023 12:09:59 Osteoarthritis of left knee joint 8965071347 86750 M17.12 [id number] Danny Dubon MD [facility] [address] [facility] [address] [place] [address] 11/13/2023 07:56:43 11/13/2023 08:36:38 Diabetes mellitus 67949843 E11.9 Hyperlipidemia 31807695 E78.5 Z79.899 Hypothyroidism 24292740 E03.9 Essential hypertension 86283732 I10 stable Unexplaine d recurrent falls 348184681 R29.6 R25.1 neurology referral given Bilateral thumb pain 253 6143547 9516096 M79.644 M79.645 Screening mammography 24 774701 Z12.31 Postmenopausal state 764 27289 Z78.0 [id number] Jose C Guardado MD [facility] [address] [address] [place] [address] 12/09/2023 14:02:28 12/09/2023 16:27:55 Osteoarthritis of left knee joint 1125778169 73220 M17.12 [id number] EVELYN Bragg [facility] [address] [facility] [address] [place] [address] 03/13/2024 10:10:50 03/13/2024 10:54:37 Dysuria 20540277 R30.0 Adult heal th examination 667510255 Z00.00 Encouraged fresh fruits and veggies-hi gh intake bothIncrea se daily water intake-low intakeEnco urage 30 mins of daily exerciseCo lonoscopy- Well woman exams-DEXA -LDCT- Diabetes m ellitus screening 613791105 Z13.1 Hyperlipid emia screening 513306577 Z13.220 Hyperglyce evert due to type 2 diabetes mellitus 3955130108 83983 E11.65 pt would like to stop taking metformins he would like to try another medication trial ozempicenc ouraged to check blood sugars daily Thyroid di sorder screening 431927000 Z13.29 Anemia screening 2440030 07 Z13.0 [id number] ZITA Dixon-Oseas [facility] [address] [facility] [address] [place] [address] 04/23/2024 10:38:03 04/23/2024 11:05:07 Hyperglycemia due to type 2 diabetes mellitus 8907856623 06011 E11.65 has been doing well with using ozempicthe highest her bs has been was 120refill given Swelling o f bilateral lower limbs 576521814 M79.89 limit salt intakeelev ated feet intermitte ntly throughout the dayensure adequate hydration/ urinationc ompression stocking ordered Health Concerns Section Related Observation LastModified by Organization Detai ls LastModified Time None Recorded Concern Status LastModified by Organization Details LastModified Time None Recorded Advance Directives Directive N: Payers Encounter Date Sequence Insurance Name Policy Number Policy Joshua Covered Member ID Joshua Member ID Guarantor Name 08/30/2023 1 [facility] (MEDICARE REPLACEMENT/A DVANTAGE - PPO) [id number] Dulce Witt [id number] Dulce Witt 11/13/2023 1 [facility] (MEDICARE REPLACEMENT/A DVANTAGE - PPO) [id number] Dulce Witt [id number] Dulce Witt 12/09/2023 1 [facility] (MEDICARE REPLACEMENT/A DVANTAGE - PPO) [id number] Dulce Witt [id number] Dulce S Crary 03/13/2024 1 [facility] (MEDICARE REPLACEMENT/A DVANTAGE - PPO) [id number] Dulce S Crary [id number] Dulce S Crary 04/23/2024 1 [facility] (MEDICARE REPLACEMENT/A DVANTAGE - PPO) [id number] Dulce S Crary [id number] Dulce S Crary Notes Date Note Type Note Provider Name and Address Organization Details Recorded Time 11/13/2023 text/html was having some falls, loss of balance and tremor she is a very active lady, likes to work in the [employer] b/l thumb pain, did have shots in the past Danny Dubon MD [address], [place], [address], [facility] 11/24/2023 08:42:48 03/13/2024 text/html pt is here for physical ALLYSON Dixon [address], [place], [address], Prez[facility] 03/13/2024 14:19:02 04/23/2024 text/html pt is here for f/u ALLYSON Dixon [address], [place], [address], Prez[facility] 04/23/2024 11:10:38 OBGyn Episode No OBEpisode recorded.
[2025-01-22 12:07] LABS: Add Urine Microscopic? YES; Appearance Urine Clear (Clear); Bacteria Urine None Seen /hpf; Bilirubin Urine Negative (Negative); Blood Urine 1+ (Negative); Color Urine Yellow (Yellow); Glucose Urine UA Negative (Negative); Ketones Urine Negative (Negative); Leukocyte Esterase Ur Trace LEU/UL (Negative); Nitrate Urine Negative (Negative); Non Pathogenic Casts 0-2; Protein Urine Trace mg/dL (Negative); Specific Grav Ur 1.021 (1.001-1.035); Squamous Epithelial Cell Urine None Seen /hpf (Few); WBC Urine 0-5 /hpf (0-3)
[2025-01-22 12:20] LABS: Basophils Percent Auto 0.4 % (0.2-1.2); Eosinophils Absolute Auto 0.2 K/mm3 (0-0.3); Eosinophils Percent Auto 2.4 % (0-4.4); Hematocrit 42.9 % (37.0-47.0); Hemoglobin 13.4 g/dL (12.0-15.0); Immature Granulocyte Absolute 0.02 K/mm3 (0.00-0.031); Immature Granulocyte Percent A 0.2 % (0-0.5); Lymphocytes Percent Auto 24.9 % (18.3-44.2); Mean Corpuscular HGB Conc 31.2 g/dl (32-36); Mean Corpuscular Hemoglobin 26.5 pg (26-34); Mean Platelet Volume 9.3 fl (7.4-10.4); Monocytes Absolute Auto 0.9 K/mm3 (0.1-0.6); Monocytes Percent Auto 11.6 % (2.6-8.5); Neutrophils Absolute Auto 4.9 K/mm3 (1.3-6.7); Neutrophils Percent Auto 60.5 % (45.5-73.1); Platelet Count Result 263 k/mm3 (150-375); Red Blood Count 5.05 M/mm3 (4.2-5.4); Red Cell Distribution Width 14.4 % (11.5-14.5)
--- OUTSIDE RECORDS SUMMARY | 2025-01-22 12:23 | XMS_ITS | CONTINUITY OF CARE DOCUMENT ---
Author Name janie lima Address Unknown Organization [facility] Address [address] [place] [address] Phone [phone] Care Team Providers Care Appeals Court Associate Justice Name Role Phone Salinas Al MD Unavailable [...] smoker active Salinas Al MD COPD active Salinas Al MD Lung nodule, right middle lung active Gustavo Al MD Fatigue active Salinas Al MD ENCOUNTERS Date Type Provider Location Encounter Diag nosis 02/02 - 02/02 In-person encounter Office Visit Salinas Al MD [facility] Fatigue 08/05 - 08/05 In-person encounter Office Visit Salinas Al MD [facility] 02/04 - 02/04 In-person encounter Office Visit Salinas Al MD [facility] 08/06 - 08/06 In-person encounter Office Visit Salinas Al MD [facility] Lung nodule, right middle lung 05/11 - 05/14 In-person encounter Office Visit Salinas Al MD [facility] COPD 03/15 - 03/19 In-person encounter Office Visit Salinas Al MD [facility] Cardiology examinationHyperlipidemiaHTN essentialPrediabetesGERDSyncopeHypothyroidismDyspnea on exertionChest painAbnormal EKGFormer smoker VITAL SIGNS Date Observation Value Provider Body Mass Index (Ratio) 33.41 kg/m2 Claudia Al MD blood pressure, cuff size large Cullen jessesamreen Renteria blood pressure, diastolic 62 mm[Hg] [facility], systolic 120 mm[Hg] Tab [facility] oxygen saturation, oximetry 95 % [facility] respiratory rate E&M 12 /min [facility] pulse rate 65 /min [facility] weight E&M 207 [lb_av] [facility] height E&M 66 [in_i] [facility] Body Mass Index (Ratio) 33.25 kg/m2 Claudia Al MD blood pressure, diastolic 71 mm[Hg] Kathie [facility] blood pressure, systolic 135 mm[Hg] Meghan [facility] blood pressure, diastolic 71 mm[Hg] Kathie Log blood pressure, systolic 135 mm[Hg] [facility] blood pressure, diastolic 71 mm[Hg] [facility] blood pressure, systolic 135 mm[Hg] [facility] blood pressure, cuff size regular Dale hendrickson [...] Fionakobi Uribe respiratory rate E&M 16 /min Foina hyde weight E&M 208.4 [lb_av] Fionakobi Uribe [...] Leger social history E&M S moking History: Ninoksa padilla is a former smoker. Salinas Al [...] Payer name Policy type / Coverage type [place] [employer] party ID AARP [facility] ADVANTAGE PLAN 2 (HMO-POS) Medicare [id number] ADVANCE DIRECTIVES Name Date DISCUSSED - NO DECISION MADE TREATMENT PLAN Date Name Performer [id number],S, Salinas Colon ra[place] [id number],S, Salinas Colon ra[place] [id number],S, Salinas Colon ra[place] [id number],B, Salinas Colon ra, [place] [id number],W, B P today: 146/54 P rior BP: [...] mouth once a day Salinas Al MD [id number],S, H er updated medication list for this problem includes: Ezetimibe 10 Mg Tablet (Ezetimibe) ..... Take 1 tablet by mouth once a day Atorvastatin 40 Mg Tablet (Atorvastatin) ..... Take 1 tablet by mouth once a day Salinas Al MD [id number],BSalinas ra, MD [id number],SSalinas ra, MD [id number],BSalinas ra, [place] [id number],B, B P today: 134/66 P rior BP: [...] mouth once a day Salinas Al MD [id number],BSalinas ra, [place] [id number],S, H er updated medication list for this problem includes: Ezetimibe 10 Mg Tablet (Ezetimibe) ..... Take 1 tablet by mouth once a day Atorvastatin 40 Mg Tablet (Atorvastatin) ..... Take 1 tablet by mouth once a day Salinas Al MD [id number],SSalinas ra, [place] [id number],SSalinas ra, [place] [id number],SSalinas ra, [place] [id number],W, B P today: 148/85 P rior BP: [...] mouth once a day Salinas Al MD [id number],B, H er updated medication list for this problem includes: Amlodipine-benazepril 5-20 Mg Capsule (Amlodipine-benazepril) ..... Take 1 capsule by mouth once a day Carvedilol 3.125 Mg Tablet (Carvedilol) ..... Take 1 tablet by mouth twice a day Aspirin 81 Mg Tablet,delayed Release (dr/ec) (Aspirin) ..... Take 1 tablet by mouth once a day Salinas Al MD [id number],N, Salinas Colon ra, [place] [id number],S, Salinas Colon ra, [place] [id number],S, H er updated medication list for this problem includes: Amlodipine-benazepril 5-20 Mg Capsule (Amlodipine-benazepril) ..... Take 1 capsule by mouth once a day Carvedilol 3.125 Mg Tablet (Carvedilol) ..... Take 1 tablet by mouth twice a day Aspirin 81 Mg Tablet,delayed Release (dr/ec) (Aspirin) ..... Take 1 tablet by mouth once a day Salinas Al MD [id number],S, Salinas Colon ra, [place] [id number],S, Salinas Colon ra, MD [id number],S, Salinas Colon ra, [place] [id number],W, H er updated medication list for this problem includes: Amlodipine-benazepril 5-20 Mg Capsule (Amlodipine-benazepril) ..... Take 1 capsule by mouth once a day Carvedilol 3.125 Mg Tablet (Carvedilol) ..... Take 1 tablet by mouth twice a day Aspirin 81 Mg Tablet,delayed Release (dr/ec) (Aspirin) ..... Take 1 tablet by mouth once a day Salinas Al MD [id number],SSalinas ra, MD [id number],S, H er updated medication list for this problem includes: Atorvastatin 40 Mg Tablet (Atorvastatin) ..... Take 1 tablet by mouth once a day Salinas Al MD [id number],S, B P today: 119/69 Her updated medication [...] CT Low Dose Lung CT DLCO - 09544 FRC - 20219 FVC - 49262 Monitor - Telemetry (Mobile Cardiac) Stress Regadenoson Complete Echo TSH, 3RD GENERATION W/REFLEX TO FT4 LIPID PANEL HISTORY OF PROCEDURES Procedure Date Procedure Name Provider Procedure Notes S tatus Counseling LDCT Salinas Al MD co mpleted Counseling LDCT Salinas Al MD co mpleted Spirometry Salinas Al MD complet ed FVC / MVV with bronchodilator - 29732 Salinas Al MD completed 6 minute walk test Salinas Al MD completed FRC - 83224 Salinas Al MD comple sara SpO2 w/o 6min walk/titration Salinas Al MD completed SVC - 82703 Salinas Al MD comple sara DLCO - 63683 Salinas Al MD compl eted Counseling LDCT Salinas Al MD co mpleted EKG Salinas Al MD complet ed
--- OUTSIDE RECORDS SUMMARY | 2025-01-22 12:24 | XMS_ITS | Continuity of Care Document ---
Author Organization [facility] Address [address] [place] [address] Phone Care Team Providers Care Nurse Orthopaedic Name Role Phone No Information Unavailable Unavailable Advance Directives Directive Yes / No Effective Date File Name No Information Encounters Encounter Description Practice Location Reason(s) For Visit Diagnoses Date Provider Providers Copied on Encounter [facility], [address], [place], [place], [id number] , [phone] No Information 0 0 No Information [facility], [address], [place], [place], [id number] , tel:[phone] [facility] Calculus of kidneyFrequency of micturitionUrgency of urination Apr-2 6201 [address]. [address], [id number], [place]. tel:[phone] Referring Provider: Alexsander Banks, [address], [address] . tel:[phone] Family History Family Member Type Diagnosis Age At Onset No Information Payers Payer name Insurance type Covered libertarian ID Authorhoracea [facility] [id number] Social History Type Description Quantity Date Captured [...]
--- OUTSIDE RECORDS SUMMARY | 2025-01-22 12:24 | XMS_ITS | Continuity of Care Document ---
Author Organization [facility] Address [address] [place] [address] Phone Care Team Providers Care Galvanizer Zinc Name Role Phone Meryl Kay MD Unavailable [...] Diagnoses Date Provider Providers Copied on Encounter [facility], [address], [place], [place], [id number], [place] tel:[phone] [facility] [place] vision is improved (chief complaint) Presence of intraocular lens Apr-1 9-201 9 Eliza Meryl. [address], [place], [place], [id number], [place]. tel:[phone] Referring Provider: Salinas Fowler [address] [place], [address]. tel:[phone] [facility], [address], [place], [place], [id number], [place] tel:[phone] [facility] [place] Post Op Examination (chief complaint)fl uctuating vision (chief complaint) Presence of intraocular lens Mar-2 0-201 9 Eliza Meryl. [address], [place], [place], [id number], [place]. tel:[phone] Referring Provider: Salinas Fowler, [address] [facility], [place], [address]. tel:[phone] [facility], [address], [place], [place], [id number], [place] tel:[phone] [facility] [place] Post Op Examination (chief complaint)gl ossy vision x 2 days (chief complaint) Presence of intraocular lens Mar-0 6-201 9 Eliza Meryl. [address], [place], [place], [id number], [place]. tel:[phone] Referring Provider: Salinas Fowler, [address] [facility], [place], [address]. tel:[phone] [facility], [address], [place], [place], [id number], [place] tel:[phone] [facility] [place] no complaints (chief complaint) Presence of intraocular lens 9 Eliza Sheth. [address], [place], [place], [id number], [place]. tel:[phone] Referring Provider: Salinas Fowler, [address] [facility], [place], [address]. tel:[phone] [facility], [address], [place], [place], [id number], [place] tel:[phone] [facility] no complaints (chief complaint) Presence of intraocular lens 9 Eilza Sheth. [address], [place], [place], [id number], [place]. tel:[phone] [facility], [address], [place], [place], [id number], [place] tel:[phone] [facility] Age-related nuclear cataract, left eye 9 Eliza Sheth. [address], [place], [place], [id number], [place]. tel:[phone] Referring Provider: Mercedes Arias, [address], [place], [address] tel:[phone] [facility], [address], [place], [place], [id number], [place] tel:[phone] [facility] Age-related nuclear cataract, bilateral 9 [facility] [address], [place], [place], [id number], [place]. tel:[phone] Referring Provider: Meryl Bajwa, [address], [place], [address]. tel:[phone] [facility], [address], [place], [place], [id number], [place] tel:[phone] [facility] no complaints (chief complaint) Presence of intraocular lens 9 Eliza Sheth. [address], [place], [id number], [place]. tel:[phone] Referring Provider: Salinas Fowler, [address], [place], [address]. tel:[phone] [facility], [address], [place], [id number], [place] tel:[phone] [facility] blurry vision (chief complaint) Presence of intraocular lens 9 Eliza Sheth. [address], [place], [place], [id number], [place]. tel:[phone] [facility], [address], [place], [id number], [place] tel:[phone] [facility] trouble with glare (chief complaint)tr ouble reading (chief complaint)tr ouble seeing at night (chief complaint) Age-related nuclear cataract, right eye 9 Eliza Sheth. [address], [place], [id number], [place]. tel:[phone] Referring Provider: Mercedes Arias, [address], [place], [address] tel:[phone] [facility], [address], [place], [id number], [place] tel:[phone] [facility] Age-related nuclear cataract, bilateral 9 [facility]. [address], [place], [place], [id number], [place]. tel:[phone] Referring Provider: Meryl Bajwa, [address], [place], [address]. tel:[phone] [facility], [address], [place], [id number], [place] tel:[phone] [facility] No Information [facility] [address], [place], [place], [id number], [place]. tel:[phone] [facility], [address], [place], [id number], [place] tel:[phone] [facility] No Information No Information Referring Provider: Salinas Fowler [address] [facility], [place], [address]. tel:[phone] NEW PT COMP E&M [facility], [address], [place], [place], [id number], [place] tel:[phone] [facility] cloudy vision (chief complaint)gl ivette all the time (chief complaint)di abetes (chief complaint)cl oudy vision (chief complaint)gl ivette all the time (chief complaint)di abetes (chief complaint) Age-related nuclear cataract, bilateralPre sbyopiaType 2 diabetes mellitus without complication sMacular cyst, hole, or pseudohole, right eyeVitreomac ular adhesion, left eyeBenign neoplasm of left choroid 8 Eliza Sheth. [address], [place], [place], [id number], [place]. tel:[phone] Referring Provider: Salvatore Montoya S , [place], [address]. tel:[phone] [facility], [address], [place], [place], [id number], [place] tel:[phone] [facility] dry eye F/U (chief complaint)dr corrales eye F/U (chief complaint) Punctate keratitis, bilateral Oct-0 7 No Information Referring Provider: Salinas Fowler [address] [place], [address]. tel:[phone] [facility], [address], [place], [place], [id number], [place] tel:[phone] [facility] Diabetes Type II (chief complaint)fi lm over eyes (chief complaint)gl are at night (chief complaint)Di abetes Type II (chief complaint)fi lm over eyes (chief complaint)gl are at night (chief complaint) PresbyopiaAg e-related nuclear cataract, bilateralTyp e 2 diabetes mellitus without complication sPunctate keratitis, bilateral Sep-2 7 No Information Referring Provider: Salinas Fowler [address] [place], [address]. tel:[phone] Family History Family Member Type Diagnosis Age At Onset Problem (finding) Family history of Diabe davina mellitus Immunizations Vaccine Date Status Comments Flu (split) (3 yrs or older) administered Source: Other Provider Payers Payer name Insurance type Covered democrat ID Authoriza tion(s) No Information Social History [...] To: León Michaels [address] [place], [phone] Ordered: Referrals: Retina. León Michaels Evaluate and [...] No Information Instructions Date Instruction Additional Infor meli Schedule cat sx OU Related to Ag e-related nuclear cataract, bilateral Refer to retinal spe cialist for clearance prior to cat sx OU Related to Macular cyst, hole, or pseudohole, right eye Impression/Plan Related to Age-r elated nuclear cataract, bilateral Impression/Plan Related to Presb yopia Impression/Plan Related to Type 2 diabetes mellitus without complications Impression/Plan Related to Macul ar cyst, hole, or pseudohole, right eye Impression/Plan Related to Benig n neoplasm of left choroid Impression/Plan Related to Vitre omacular adhesion, left eye - Rtc in 6mon forVCE w/ Dr.Viran morel Related to Punctate keratitis, bilateral - --monitor--AT's qid ou Related to Punctate keratitis, bilateral - New [...]
--- NOTE | 2025-01-22 12:29 | ED_ITS ---
HPI - General Adult General Chief complaint: Urogenital-Female Stated complaint: lower back pain Time Seen by Provider: 01/22/25 11:55 History of Present Illness HPI narrative: This is a 74-year-old female with history of kidney stones presenting with lower back pain. Pain started 2 days ago. It is in the right lower paralumbar region. It is nonradiating, aching stabbing in intensity. The pain comes and goes but is exacerbated by movement. Patient notes that she has had dysuria and urgency. She has also had nausea vomiting and diarrhea. She also says that she woke up was diaphoretic this morning. She denies fevers, chest pain difficulty breathing. Patient does not have any saddle anesthesia, lower extremity weakness, urinary retention. Related Data Home Medications ?Medication ?Instructions ?Recorded ?Confirmed ?Last Taken ?Type metformin 500 mg tablet mg PO BID 08/14/24 12/28/24 Unknown History phentermine 37.5 mg capsule 37.5 mg PO DAILY 08/14/24 12/28/24 Unknown History Allergies Allergy/AdvReac Type Severity Reaction Status Date / Time No Known Allergies Allergy Verified 01/22/25 12:33 [facility] Past Medical History Medical History Diabetes mellitus with diabetic neuropathy Depression Stress incontinence Bilateral thumb pain Constipation Rhinitis, chronic Esophageal reflux disease Hyperlipidemia Hypertension Hypothyroid Thyroid disorder Diabetes COPD (chronic obstructive pulmonary disease) Arthritis Surgical History Surgical History History of hysterectomy History of knee surgery Family History Family History Father Heart disease Mother Diabetes mellitus Heart disease Other Acute myocardial infarction Social History Social History Smoking status: Former smoker Second hand tobacco smoke exposure: Yes Alcohol intake: current Substance use: never Substance use type: does not use Do You Feel Safe in your Home?: Yes Lack of Transportation: No Lack of Food: Never True Current Housing: I Have Housing Concerned About Future Housing: No Difficulty Paying Gas/Electric Bills: No Difficulty Paying for Meds: No Currently Unemployed: No Education: High School Diploma/GED Difficulty w/ Childcare or Family Care: No Living arrangements: with family Occupation/Education: retired Additional occupation/education comments: [employer]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 Head: atraumatic. EYES: EOMI, NOSE: Atraumatic NECK: Trachea midline RESPIRATORY: No increased rate of breathing clear to auscultation CARDIOVASCULAR: RRR, no peripheral edema ABDOMINAL: Non-distended soft nontender no guarding rebound, no CVA tenderness MUSCULOSKELETAl: No midline spinal tenderness no tenderness over the paralumbar muscles NEURO: Alert. Moving 4/4 extremities SKIN:: Warm, dry. Normal color PSYCHIATRIC: Normal affect Course Vital Signs Vital signs: Vital Signs Temperature 98.4 F 01/22/25 10:25 Pulse Rate 64 01/22/25 10:25 Respiratory Rate 16 01/22/25 10:25 Blood Pressure 121/78 01/22/25 10:25 Pulse Oximetry 98 01/22/25 10:25 Oxygen Delivery Room Air 01/22/25 10:25 Temperature 98.4 F 01/22/25 10:25 Pulse Rate 55 L 01/22/25 12:33 Respiratory Rate 18 01/22/25 12:33 Blood Pressure 124/65 01/22/25 12:33 Pulse Oximetry 98 01/22/25 12:33 Oxygen Delivery Room Air 01/22/25 10:25 Medical Decision Making [facility] Narrative Medical decision making narrative: -Course: 74-year-old female presenting with right-sided lower back pain. Pain is worse with movement. Does have some urinary symptoms over her urinalysis here has no indication of infection. Her CT abdomen pelvis did not reveal any kidney stone or any other intra-abdominal findings. Patient's symptoms improved with Valium. He will be discharged on Tylenol Robaxin. She has follow-up with primary care physician next week. Given return precautions. -DDX includes but is not limited to: Gastroenteritis lower back pain kidney stone, urinary tract infection, pyelonephritis, appendicitis, colitis Vital Signs Vital Signs: Vital Signs Temperature 98.4 F 01/22/25 10:25 Pulse Rate 64 01/22/25 10:25 Respiratory Rate 16 01/22/25 10:25 Blood Pressure 121/78 01/22/25 10:25 Pulse Oximetry 98 01/22/25 10:25 Oxygen Delivery Room Air 01/22/25 10:25 Temperature 98.4 F 01/22/25 10:25 Pulse Rate 55 L 01/22/25 12:33 Respiratory Rate 18 01/22/25 12:33 Blood Pressure 124/65 01/22/25 12:33 Pulse Oximetry 98 01/22/25 12:33 Oxygen Delivery Room Air 01/22/25 10:25 Lab Data 01/22/25 12:08 01/22/25 12:08 Labs: Lab Results 01/22/25 01/22/25 01/22/25 Range/Units 11:54 12:08 12:41 WBC 8.0 (4.5-10.0) K/mm3 RBC 5.05 (4.2-5.4) M/mm3 Hgb 13.4 (12.0-15.0) g/dL Hct 42.9 (37.0-47.0) % MCV 85.0 (80-100) fl MCH 26.5 (26-34) pg MCHC 31.2 L (32-36) g/dl RDW 14.4 (11.5-14.5) % Plt Count 263 (150-375) k/mm3 MPV 9.3 (7.4-10.4) fl Immature Gran % (Auto) 0.2 (0-0.5) % Neut % (Auto) 60.5 (45.5-73.1) % Lymph % (Auto) 24.9 (18.3-44.2) % [place] % (Auto) 11.6 H (2.6-8.5) % Eos % (Auto) 2.4 (0-4.4) % Baso % (Auto) 0.4 (0.2-1.2) % Lymph # (Auto) 2.00 (0.9-3.2) K/mm3 [place] # (Auto) 0.9 H (0.1-0.6) K/mm3 Eos # (Auto) 0.2 (0-0.3) K/mm3 Baso # (Auto) 0.0 (0.0-0.1) K/mm3 Abs Immat Gran (auto) 0.02 (0.00-0.031) K/mm3 Absolute Neuts (auto) 4.9 (1.3-6.7) K/mm3 Absolute Nucleated RBC 0.000 (0.0-0.012) K/mm3 Nucleated RBC % 0.0 (0.0-0.2) % Sodium 140 (137-145) mmol/L Potassium 4.5 (3.4-5.0) mmol/L Chloride 105 (98-107) mmol/L Carbon Dioxide 32 H (22-30) mmol/L Anion Gap 3 L (4-12) mmol/L BUN 15 (7-17) mg/dL Creatinine 0.77 (0.7-1.0) mg/dL Estim Creat Clear Calc 60 ml/min Estimated GFR > 60 (59 - ) Glucose 130 H (65-110) mg/dL Calcium 9.5 (8.4-10.2) mg/dL Total Bilirubin 0.5 (0.2-1.3) mg/dL AST 42 H (14-36) U/L ALT 21 (6-35) U/L Alkaline Phosphatase 86 (38-126) U/L Total Protein 7.0 (6.3-8.2) g/dL Albumin 4.1 (3.5-5.1) g/dL Lipase 120 (23-300) U/L Urine Color Yellow (Yellow) Urine Appearance Clear (Clear) Urine pH 5.0 (5.0-9.0) Ur Specific [place] 1.021 (1.001-1.035) Urine Protein Trace (Negative) mg/dL Urine Glucose (UA) Negative (Negative) mg/dL Urine Ketones Negative (Negative) mg/dL Ur Blood (Man) 1+ H (Negative) Urine Nitrate Negative (Negative) Urine Bilirubin Negative (Negative) Urine Urobilinogen 1.0 (<2.0) mg/dL Leukocyte Esterase Rfl Trace H (Negative) EDWIN/UL Urine RBC 3-5 H (0-2) /hpf Urine WBC 0-5 (0-3) /hpf Ur Squamous Epith Cells None seen (Few) /hpf Urine Bacteria None seen /hpf Urine Casts 0-2 Influenza A (RT-PCR) Negative (Negative) Influenza B (RT-PCR) Negative (Negative) RSV (RT-PCR) Negative (Negative) SARS-CoV-2 RNA (RT-PCR) Negative (Negative) Discharge Plan Discharge Clinical Impression: Lower back pain Patient Disposition: Home Condition: Stable Instructions: Antibiotic Form, Acute Low Back Pain (ED) Patient Language: Swedish Prescriptions: New acetaminophen 500 mg capsule 1,000 mg PO Q8H PRN (Reason: pain) Qty: 60 0RF methocarbamol 750 mg tablet 1,500 mg PO TID Qty: 42 0RF No Action metformin 500 mg tablet PO BID phentermine 37.5 mg capsule 37.5 mg PO DAILY Rx Instructions: must administer 30 minutes before or 1-2 hours after breakfast amlodipine-benazepril 10-20 mg capsule 1 cap PO DAILY Qty: 90 3RF atorvastatin 40 mg tablet 40 mg PO DAILY Qty: 90 3RF carvedilol 6.25 mg tablet 6.25 mg PO BID Qty: 180 3RF celecoxib 200 mg capsule 200 mg PO BID PRN (Reason: pain) Qty: 180 3RF escitalopram oxalate 5 mg tablet 5 mg PO DAILY Qty: 90 3RF ezetimibe 10 mg tablet 10 mg PO DAILY Qty: 90 3RF gabapentin 300 mg capsule 300 mg PO QHS Qty: 90 3RF levothyroxine 88 mcg tablet 88 mcg PO DAILY Qty: 90 3RF mirabegron [Myrbetriq] 50 mg tablet extended release 24 hr 50 mg PO DAILY Qty: 90 3RF omeprazole 40 mg capsule,delayed release(DR/EC) 40 mg PO DAILY Qty: 90 3RF Spiriva Respimat 1.25 mcg/actuation mist 2 inh inhalation DAILY Qty: 4 11RF albuterol sulfate 90 mcg/actuation HFA aerosol inhaler 1 - 2 inh inhalation Q4-6H PRN (Reason: shortness of breath or wheezing) Qty: 8.5 5RF Ozempic 0.25 mg or 0.5 mg (2 mg/3 mL) pen injector 0.5 mg subcut WEEKLY Qty: 3 11RF Follow-up/Referrals: Jonelle Mcwilliams NP [Primary Care Provider] -
[2025-01-22 12:31] LABS: Alanine Aminotransferase 21 U/L (6-35); Albumin Level 4.1 g/dL (3.5-5.1); Alkaline Phosphatase 86 U/L (38-126); Anion Gap 3 mmol/L (4-12); Aspartate Amino Transferase 42 U/L (14-36); Bilirubin,Total 0.5 mg/dL (0.2-1.3); Blood Urea Nitrogen 15 mg/dL (7-17); Calcium 9.5 mg/dL (8.4-10.2); Carbon Dioxide 32 mmol/L (22-30); Chloride 105 mmol/L (98-107); Estimated CRCL calculation 60 ml/min; Estimated Glomerular Filt Rate > 60; Glucose 130 mg/dL (65-110); Lipase 120 U/L (23-300); Potassium 4.5 mmol/L (3.4-5.0); Sodium 140 mmol/L (137-145)
[2025-01-22 12:33] VITALS: BP 124/65; PULSE 55; RESP 18; O2SAT 98
[2025-01-22] MEDS: ONDANSETRON INJ 4 MG/2 ML VIAL IV PUSH (12:34)
[2025-01-22] MEDS: diazePAM INJ (*CRX) 10 MG/2 ML SYRINGE 5 MG IV PUSH (12:34)
[2025-01-22 13:31] LABS: Influenza A QL RT-PCR Negative (Negative); Influenza B QL RT-PCR Negative (Negative); RSV RNA, RT-PCR Negative (Negative); SARS-CoV-2 RNA PCR Negative (Negative)
== END 2025-01-22 14:29 | disposition home or self-care (01) ==
PROVIDERS: Physician Assistant; Emergency Provider Emergency Medicine; PCP Nurse Practitioner Family
DX: M54.50 Low back pain, unspecified (principal); I10 Essential (primary) hypertension; E11.40 Type 2 diabetes mellitus with diabetic neuropathy, unspecified; E03.9 Hypothyroidism, unspecified; E78.5 Hyperlipidemia, unspecified; J44.9 Chronic obstructive pulmonary disease, unspecified; N39.3 Stress incontinence (female) (male); K21.9 Gastro-esophageal reflux disease without esophagitis; M19.90 Unspecified osteoarthritis, unspecified site; F32.A Depression, unspecified; Z87.891 Personal history of nicotine dependence; Z87.442 Personal history of urinary calculi; Z90.710 Acquired absence of both cervix and uterus; Z79.84 Long term (current) use of oral hypoglycemic drugs
CPT/HCPCS: 36415; 74176; 80053; 81001; 83690; 85025; 87637; 96374; 96375; 99284; J2405; J3360

== ENCOUNTER 2025-04-16 10:01 | Outpatient (CLI) | payer MEDICARE, SELFPAY ==
--- NOTE | ~2025-04-16 | XR_ITS ---
EXAMINATION: XR UGIAC w barium swallow DATE: 04/16/2025 10:50 INDICATION: Diaphragmatic hernia without obstruction TECHNIQUE: The patient drank thick barium, gas-producing crystals, and thin barium. Fluoroscopic spot radiographs of the hypopharynx, esophagus, stomach and proximal small bowel were obtained. Fluoroscopy exposure time was 2.1 minutes. A total of 1482 fluoroscopic images were recorded. Total DAP was 16.842 mGycm^2. COMPARISON: CT dated 01/22/2025. FINDINGS: The pharynx is symmetric and without evidence of mass lesion or mucosal irregularity. The esophagus is normal without mass or stricture. Esophageal motility is normal aside from some tertiary contractions in the distal third of the esophagus. There is no hiatal hernia. There was no gastroesophageal reflux with provocative maneuvers. The stomach and proximal small bowel are normal. IMPRESSION: 1. Mild tertiary contractions in the distal third of esophagus. Otherwise unremarkable esophagram and upper GI study. Reviewed, dictated and finalized at location A. IMPRESSION: 1. Mild tertiary contractions in the distal third of esophagus. Otherwise unrem arkable esophagram and upper GI study.
--- OUTSIDE RECORDS SUMMARY | 2025-04-16 10:05 | XMS_ITS | Clinical Summary ---
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 Gender Identity Not on file Sexual Orientation Not on file Plan of Treatment Health Maintenance Due Date Last Done Comments Hepatitis C 1966 DTaP, Tdap and Td Vaccines ( 1 - Tdap) 1967 Pneumococcal Vaccine: 50+ Ye ars (1 of 1 - PCV) 1998 Zoster Vaccines (1 of 2) 1998 Annual Medicare Wellness Visit 2013 Dexa Scan (General) 2013 RSV Immunization or 60+ Years (1 - 1-dose 75+ series) 2023 COVID-19 Vaccine ( - 2023-2 5 season) 2024 PHQ-2 (Physician Cheyney) 08/26/2024 Meningococcal B Vaccine Aged Out No l onger eligible based on patient's age to complete this topic Meningococcal Vaccine Aged Out No marjan harrison eligible based on patient's age to complete this topic RSV Immunizations Under 20 Months Aged Out No longer eligible based on patient's age to complete this topic Insurance [facility] Care Teams Field Horticultural Specialty Grower Relationship Specialty Start Date End Date Genie Dubon MD [address] [place] [address] [place] [address] PCP - General FAMILY PRACTICE 07/25/23
== END 2025-04-16 10:02 | disposition home or self-care (01) ==
PROVIDERS: PCP Nurse Practitioner Family; Visit Provider Nurse Practitioner
DX: K44.9 Diaphragmatic hernia without obstruction or gangrene (principal)
CPT/HCPCS: 74246

== ENCOUNTER 2025-05-20 01:45 | Day surgery (SDC) | payer MEDICARE, SELFPAY ==
[2025-05-04 14:33] VITALS: BMI 26.6
--- OUTSIDE RECORDS SUMMARY | 2025-05-20 01:49 | XMS_ITS | Data Portability ---
Author Organization [place] [employer], Main Office Address [address] [place] [address] Care Team Providers Care Freelance Copywriter Name Role Phone DANNY DUBON Primary Care Provider [phone] DANNY DUBON Referring Provider Assessment Encounter Date [...] Range of motion is from 0-135 degrees. Ptmj-wt-axlxxfro tenderness over medial joint line palpation. No [...] None recorded. Lab urinalysis, dipstick 2023 024 [facility] [address], [place], [address], 4 11:20:39 urinalysis complete, reflex culture [address], [address] [place], [address], 4 11:21:49 lipid panel, serum [address], [address] [place], [address], 4 11:23:27 TSH + free T4, serum [address], [address] [place], [address], 4 11:23:40 CBC [address], [address] [place], [address], 4 11:23:52 HbA1c (hemoglobin A1c), blood [address], [address] [place], [address], 4 11:22:14 CMP, serum or plasma [address], [address] [place], [address], 4 11:22:30 HbA1c (hemoglobin A1c), blood 2023 024 [email or web address] Not available 4 00:21:40 BMP, serum or plasma 2023 024 [email or web address] Not available 4 20:44:41 lipid panel, serum 2023 024 [email or web address] Not available 4 20:44:46 hepatic function panel, serum 2023 024 [email or web address] Not available 4 20:44:56 CBC w/ auto diff 2023 024 [email or web address] Not available 4 19:41:29 TSH, serum or plasma 2023 024 [email or web address] Not available 4 20:49:19 Referral neurologist referral - Please call patient to schedule an appointment . Thank you. 2023 024 [email or web address] Will Anderson MD, 3 [facility], [address], [address], 4 09:17:29 hand surgeon referral - Please call patient to schedule an appointment . 2023 024 [email or web address] [facility], [address] [address], [place], [address], 4 09:16:28 Procedures injection/a spiration joint/bursa (PROC) - in office procedure, administere d by provider 2023 024 [email or web address] In-Office Order, Internal Use Only DO Not Attach Compendium DO Not Attach Compendium, Do Not Delete/merge, [id number] 4 14:13:13 injection/a spiration joint/bursa (PROC) - in office procedure, administere d by provider 2023 024 [email or web address] In-Office Order, Internal Use Only DO Not Attach Compendium DO Not Attach Compendium, Do Not Delete/merge, [id number] 4 11:33:11 Surgeries None recorded. Imaging MAMMO, screening, digital, bilateral - *Please call pt to schedule* [address] (Imaging), [address] [facility] [address] [place] [address], [address], 4 09:40:17 DEXA - *Please call pt to schedule* [address] (Imaging), [address] [facility] [address], [place], [address], 4 09:40:17 Medication Orders Ozempic 0.25 mg or 0.5 mg (2 mg/3 mL) subcutaneou s pen injector 2023 024 [facility][id number], [address], [place], [place], [id number], 4 11:03:25 Ozempic 0.25 mg or 0.5 mg (2 mg/3 mL) subcutaneou s pen injector 2023 024 [facility] #[id number], [address] , [place], [place], [id number], 4 10:46:15 Kenalog 10 mg/mL suspension for injection 2023 024 [id number] Not available 4 06:54:18 Marcaine (PF) 0.5 % (5 mg/mL) injection solution 2023 024 [email or web address] Not available 4 09:31:48 Kenalog 10 mg/mL suspension for injection 2023 024 [email or web address] [facility], [address], [place], [place], [id number], 4 08:15:58 ropivacaine (PF) 5 mg/mL (0.5 %) injection solution 2023 024 [email or web address] [facility] #66579, [address], [place], [place], [id number], 4 08:08:37 Patient TargetsNo targets recorded. Patient InstructionsNo instructions recorded. Reason for Referral Hand Surgeon Referral for Bi lateral thumb pain Please call patient to schedule an appointment. Referring Physician: Danny Dubon [facility], Encounter Date: 11/13/2023 Neurologist Referral for Une xplained recurrent falls Please call patient to schedule an appointment. Thank you. Referring Physician: Danny Dubon [facility], Encounter Date: 11/13/2023 Results Created Date Observation Date Name Description Value Unit Range Abnormal Flag Note LastModifiedBy Organization Detail LastModifiedTime 11/13/19 24 11/13/2023 CBC/C OMPLE TE BLD COUNT W/DIF F white blood cells 7.0 x10'3 /uL 4.2-10 .8 Not Available [facility] (Lab) [address] [place], [address], 11/13/2023 19:41:29 11/13/19 24 11/13/2023 CBC/C OMPLE TE BLD COUNT W/DIF F red blood cells 4.96 x10'6 /uL 3.80-5 .20 Not Available [facility] (Lab) [address] [place], [address], 11/13/2023 19:41:29 11/13/19 24 11/13/2023 CBC/C OMPLE TE BLD COUNT W/DIF F hemoglobin 13.2 g/dL 12.0-1 5.6 Not Available [facility] (Lab) [address] [place], [address], 11/13/2023 19:41:29 11/13/19 24 11/13/2023 CBC/C OMPLE TE BLD COUNT W/DIF F hematocrit 42.1 % 35.7-4 5.7 Not Available [facility] (Lab) [address] [place], [address], 11/13/2023 19:41:29 11/13/19 24 11/13/2023 CBC/C OMPLE TE BLD COUNT W/DIF F mean red cell volume 84.9 fL 82.0-9 9.0 Not Available [facility] (Lab) [address] [place], [address], 11/13/2023 19:41:29 11/13/19 24 11/13/2023 CBC/C OMPLE TE BLD COUNT W/DIF F mean red cell hemoglobin 26.6 pg 27.0-3 3.0 low Not Available [facility] (Lab) [address] [place], [address], 11/13/2023 19:41:29 11/13/19 24 11/13/2023 CBC/C OMPLE TE BLD COUNT W/DIF F mean RBC HGB concentratio n 31.4 g/dL 31.0-3 6.0 Not Available [facility] (Lab) [address] [place], [address], 11/13/2023 19:41:29 11/13/19 24 11/13/2023 CBC/C OMPLE TE BLD COUNT W/DIF F red cell distribution width 15.1 % 11.8-1 5.5 Not Available [facility] (Lab) [address] [place], [address], 11/13/2023 19:41:29 11/13/19 24 11/13/2023 CBC/C OMPLE TE BLD COUNT W/DIF F platelets 297 x10'3 /uL 150-40 0 Not Available [facility] (Lab) [address] [place], [address], 11/13/2023 19:41:29 11/13/19 24 11/13/2023 CBC/C OMPLE TE BLD COUNT W/DIF F mean platelet volume 10.7 fL 9.0-12 .4 Not Available [facility] (Lab) [address] [place], [address], 11/13/2023 19:41:29 11/13/19 24 11/13/2023 CBC/C OMPLE TE BLD COUNT W/DIF F neutrophils 62.3 % 39.0-7 2.0 Not Available [facility] (Lab) [address] [place], [address], 11/13/2023 19:41:29 11/13/19 24 11/13/2023 CBC/C OMPLE TE BLD COUNT W/DIF F lymphocytes 23.8 % 16.0-4 7.0 Not Available [facility] (Lab) [address] [place], [address], 11/13/2023 19:41:29 11/13/19 24 11/13/2023 CBC/C OMPLE TE BLD COUNT W/DIF F monocytes 8.3 % 5.0-12 .0 Not Available [facility] (Lab) [address] [place], [address], 11/13/2023 19:41:29 11/13/19 24 11/13/2023 CBC/C OMPLE TE BLD COUNT W/DIF F eosinophils 4.6 % 1.0-7. 0 Not Available [facility] (Lab) [address] [place], [address], 11/13/2023 19:41:29 11/13/19 24 11/13/2023 CBC/C OMPLE TE BLD COUNT W/DIF F basophils 0.4 % 0.0-2. 0 Not Available [facility] (Lab) [address] [place], [address], 11/13/2023 19:41:29 11/13/19 24 11/13/2023 CBC/C OMPLE TE BLD COUNT W/DIF F immature granulocytes 0.6 % 0.00-0 .50 high Not Available [facility] (Lab) [address] [place], [address], 11/13/2023 19:41:29 11/13/19 24 11/13/2023 CBC/C OMPLE TE BLD COUNT W/DIF F neutrophils, absolute count 4.34 x10'3 /uL 1.5-8. 0 Not Available [facility] (Lab) [address] [place], [address], 11/13/2023 19:41:29 11/13/19 24 11/13/2023 CBC/C OMPLE TE BLD COUNT W/DIF F lymphocytes, absolute count 1.66 x10'3 /uL 1.07-3 .43 Not Available [facility] (Lab) [address] [place], [address], 11/13/2023 19:41:29 11/13/19 24 11/13/2023 CBC/C OMPLE TE BLD COUNT W/DIF F monocytes, absolute count 0.58 x10'3 /uL 0.29-0 .99 Not Available [facility] (Lab) [address] [place], [address], 11/13/2023 19:41:29 11/13/19 24 11/13/2023 CBC/C OMPLE TE BLD COUNT W/DIF F eosinophils, absolute count 0.32 x10'3 /uL 0.02-0 .53 Not Available [facility] (Lab) [address] [place], [address], 11/13/2023 19:41:29 11/13/19 24 11/13/2023 CBC/C OMPLE TE BLD COUNT W/DIF F basophils, absolute count 0.03 x10'3 /uL 0.01-0 .08 Not Available [facility] (Lab) [address] [place], [address], 11/13/2023 19:41:29 11/13/19 24 11/13/2023 CBC/C OMPLE TE BLD COUNT W/DIF F immature granulocytes ,absolute 0.04 x10'3 /uL 0.00-0 .05 Not Available [facility] (Lab) [address] [place], [address], 11/13/2023 19:41:29 11/13/19 24 11/13/2023 CBC/C OMPLE TE BLD COUNT W/DIF F nucleated red blood cells 0.0 % -0 Not Available [facility] (Lab) [address] [place], [address], 11/13/2023 19:41:29 11/13/19 24 11/13/2023 CBC/C OMPLE TE BLD COUNT W/DIF F NRBC# 0.00 x10'3 /uL Not Available [facility] (Lab) [address] [place], [address], 11/13/2023 19:41:29 11/13/19 24 11/13/2023 BASIC METAB OLIC PANEL sodium 137 mmol/ L 137-14 5 Not Available [facility] (Lab) [address] [place], [address], 11/13/2023 20:44:40 11/13/19 24 11/13/2023 BASIC METAB OLIC PANEL potassium 4.0 mmol/ L 3.5-5. 1 Not Available [facility] (Lab) [address] [place], [address], 11/13/2023 20:44:40 11/13/19 24 11/13/2023 BASIC METAB OLIC PANEL chloride 104 mmol/ L 98-107 Not Available [facility] (Lab) [address] [place], [address], 11/13/2023 20:44:40 11/13/19 24 11/13/2023 BASIC METAB OLIC PANEL carbon dioxide 29 mmol/ L 22-30 Not Available [facility] (Lab) [address] [place], [address], 11/13/2023 20:44:40 11/13/19 24 11/13/2023 BASIC METAB OLIC PANEL anion gap 8.0 mmol/ L 14-22 low Not Available [facility] (Lab) [address] [place], [address], 11/13/2023 20:44:40 11/13/19 24 11/13/2023 BASIC METAB OLIC PANEL glucose 234 mg/dL 70-99 high Not Available [facility] (Lab) [address] [place], [address], 11/13/2023 20:44:40 11/13/19 24 11/13/2023 BASIC METAB OLIC PANEL BUN 13 mg/dL 8-19 Not Available [facility] (Lab) [address] [place], [address], 11/13/2023 20:44:40 11/13/19 24 11/13/2023 BASIC METAB OLIC PANEL creatinine 0.74 mg/dL 0.66-1 .25 Not Available [facility] (Lab) [address] [place], [address], 11/13/2023 20:44:40 11/13/19 24 11/13/2023 BASIC METAB OLIC PANEL GFR >60 Refer ence Range : Jupiter ge GFR Healt hy Adult : >60 [...] or ethni c subgr oups, such as Mikey nics. Outsi de the valid ated david eters , estim ated GFR is less accur ate, requi ring clini abmer judgm ent on a case- by-ca se [...] calcu lator is avail able on the [facility] websi te: https ://sera w.froilan smith.o rg/pr ofess ional s/kdo qi/gf r_cal culat or Not Available [facility] (Lab) [address] [place], [address], 11/13/2023 20:44:40 11/13/19 24 11/13/2023 BASIC METAB OLIC PANEL calcium 9.4 mg/dL 8.4-10 .2 Not Available [facility] (Lab) [address] [place], [address], 11/13/2023 20:44:40 11/13/19 24 11/13/2023 LIPID PANEL cholesterol 154 mg/dL 140-19 9 NIH NATALIYA NSUS RECOM MENDA TION FOR QUINN STERO L: ADULT CHILD LOW RISK: <200 <170 BORDE RLINE : <200- 239 ----- HIGH RISK: >240 >200 Not Available [facility] (Lab) [address] [place], [address], 11/13/2023 20:44:46 11/13/19 24 11/13/2023 LIPID PANEL triglyceride s 148 mg/dL 0-150 NIH NATALIYA NSUS REPOR T RECOM MENDA TION FOR TRIGL YCERI ALEJANDRO: ADULT CHILD LOW RISK: <150 ----- BODER LINE: 150-1 99 ----- HIGH RISK: >200 ----- Not Available [facility] (Lab) [address] [place], [address], 11/13/2023 20:44:46 11/13/19 24 11/13/2023 LIPID PANEL HDL cholesterol 63 mg/dL 40- Not Available [facility] (Lab) [address] [place], [address], 11/13/2023 20:44:46 11/13/19 24 11/13/2023 LIPID PANEL LDL cholesterol, calculated 61 mg/dL 0-130 NIH NATALIYA NSUS REPOR T RECOM MENDA TIONS FOR LDL: ADULT CHILD LOW RISK <130 <110 (OPTI MAL LDL) <100 ----- BORDE RLINE : 130-1 59 ----- HIGH RISK: >160 >130 A TRIGL YCERI DE RESUL T >400 INVAL IDATE S THE CALCU LATIO N FOR LDL FRACT IONAT ION - THE LDL RESUL T WILL NOT BE REPOR YAMIL. Not Available [facility] (Lab) [address] [place], [address], 11/13/2023 20:44:46 11/13/19 24 11/13/2023 HEPAT IC/LI YOVANY PANEL alkaline phosphatase 83 U/L 38-126 Not Available [facility] (Lab) [address] [place], [address], 11/13/2023 20:44:56 11/13/19 24 11/13/2023 HEPAT IC/LI YOVANY PANEL alanine aminotransfe rase 26 U/L 0-35 Not Available [facility] (Lab) [address] [place], [address], 11/13/2023 20:44:56 11/13/19 24 11/13/2023 HEPAT IC/LI YOVANY PANEL aspartate aminotransfe rase 47 U/L 15-37 high Not Available [facility] (Lab) [address] [place], [address], 11/13/2023 20:44:56 11/13/19 24 11/13/2023 HEPAT IC/LI YOVANY PANEL bilirubin, total 0.50 mg/dL 0.20-1 .30 Not Available [facility] (Lab) [address] [place], [address], 11/13/2023 20:44:56 11/13/19 24 11/13/2023 HEPAT IC/LI YOVANY PANEL bilirubin, conjugated (direct) 0.00 mg/dL 0.00-0 .30 Not Available [facility] (Lab) [address] [place], [address], 11/13/2023 20:44:56 11/13/19 24 11/13/2023 HEPAT IC/LI YOVANY PANEL biliurubin,u ncong. (indirect) 0.40 mg/dL 0.00-1 .1 Not Available [facility] (Lab) [address] [place], [address], 11/13/2023 20:44:56 11/13/19 24 11/13/2023 HEPAT IC/LI YOVANY PANEL total protein 6.5 g/dL 6.3-8. 2 Not Available [facility] (Lab) [address] [place], [address], 11/13/2023 20:44:56 11/13/19 24 11/13/2023 HEPAT IC/LI YOVANY PANEL albumin 4.1 g/dL 3.0-4. 4 Not Available [facility] (Lab) [address] [place], [address], 11/13/2023 20:44:56 11/13/19 24 11/13/2023 HEPAT IC/LI YOVANY PANEL globulin 2.4 g/dL 2.6-4. 2 low Not Available [facility] (Lab) [address] [place], [address], 11/13/2023 20:44:56 11/13/19 24 11/13/2023 HEPAT IC/LI YOVANY PANEL A/G ratio 1.7 ratio 1.0-2. 0 Not Available [facility] (Lab) [address] [place], [address], 11/13/2023 20:44:56 11/13/19 24 11/13/2023 TSH thyroid-stim ulating hormone 1.850 uIU/m L 0.465- 4.680 Not Available [facility] (Lab) [address] [place], [address], 11/13/2023 20:49:19 11/13/19 24 11/13/2023 HEMOG LOBIN A1C HA1C 6.6 % 4.0-6. 0 high Diabe davina Scree nona Crite april: <5.7% Consi stent with absen ce of diabe davina 5.7-6 .4% Consi stent with incre ased risk for diabe davina (pred iabet es) >OR=6 .5% Consi stent with diabe davina REFER ENCE: Diabe davina Care 2016, 39(Wong ppl.1 ):s13 -s22 Not Available [facility] (Lab) [address] [place], [address], 11/13/2023 21:20:25 02/03/20 24 02/03/2024 CBC/C OMPLE TE BLD COUNT W/DIF F white blood cells 9.8 x10'3 /uL 4.2-10 .8 Not Available [facility] (Lab) [address] [place], [address], 02/03/2024 13:01:30 02/03/20 24 02/03/2024 CBC/C OMPLE TE BLD COUNT W/DIF F red blood cells 4.82 x10'6 /uL 3.80-5 .20 Not Available [facility] (Lab) [address] [place], [address], 02/03/2024 13:01:30 02/03/20 24 02/03/2024 CBC/C OMPLE TE BLD COUNT W/DIF F hemoglobin 12.9 g/dL 12.0-1 5.6 Not Available [facility] (Lab) [address] [place], [address], 02/03/2024 13:01:30 02/03/20 24 02/03/2024 CBC/C OMPLE TE BLD COUNT W/DIF F hematocrit 40.5 % 35.7-4 5.7 Not Available [facility] (Lab) [address] [place], [address], 02/03/2024 13:01:30 02/03/20 24 02/03/2024 CBC/C OMPLE TE BLD COUNT W/DIF F mean red cell volume 84.0 fL 82.0-9 9.0 Not Available [facility] (Lab) [address] [place], [address], 02/03/2024 13:01:30 02/03/20 24 02/03/2024 CBC/C OMPLE TE BLD COUNT W/DIF F mean red cell hemoglobin 26.8 pg 27.0-3 3.0 low Not Available [facility] (Lab) [address] [place], [address], 02/03/2024 13:01:30 02/03/20 24 02/03/2024 CBC/C OMPLE TE BLD COUNT W/DIF F mean RBC HGB concentratio n 31.9 g/dL 31.0-3 6.0 Not Available [facility] (Lab) [address] [place], [address], 02/03/2024 13:01:30 02/03/20 24 02/03/2024 CBC/C OMPLE TE BLD COUNT W/DIF F red cell distribution width 15.2 % 11.8-1 5.5 Not Available [facility] (Lab) [address] [place], [address], 02/03/2024 13:01:30 02/03/20 24 02/03/2024 CBC/C OMPLE TE BLD COUNT W/DIF F platelets 322 x10'3 /uL 150-40 0 Not Available [facility] (Lab) [address] [place], [address], 02/03/2024 13:01:30 02/03/20 24 02/03/2024 CBC/C OMPLE TE BLD COUNT W/DIF F mean platelet volume 10.1 fL 9.0-12 .4 Not Available [facility] (Lab) [address] [place], [address], 02/03/2024 13:01:30 02/03/20 24 02/03/2024 CBC/C OMPLE TE BLD COUNT W/DIF F neutrophils 63.0 % 39.0-7 2.0 Not Available [facility] (Lab) [address] [place], [address], 02/03/2024 13:01:30 02/03/20 24 02/03/2024 CBC/C OMPLE TE BLD COUNT W/DIF F lymphocytes 23.1 % 16.0-4 7.0 Not Available [facility] (Lab) [address] [place], [address], 02/03/2024 13:01:30 02/03/20 24 02/03/2024 CBC/C OMPLE TE BLD COUNT W/DIF F monocytes 9.2 % 5.0-12 .0 Not Available [facility] (Lab) [address] [place], [address], 02/03/2024 13:01:30 02/03/20 24 02/03/2024 CBC/C OMPLE TE BLD COUNT W/DIF F eosinophils 3.6 % 1.0-7. 0 Not Available [facility] (Lab) [address] [place], [address], 02/03/2024 13:01:30 02/03/20 24 02/03/2024 CBC/C OMPLE TE BLD COUNT W/DIF F basophils 0.4 % 0.0-2. 0 Not Available [facility] (Lab) [address] [place], [address], 02/03/2024 13:01:30 02/03/20 24 02/03/2024 CBC/C OMPLE TE BLD COUNT W/DIF F immature granulocytes 0.7 % 0.00-0 .50 high Not Available [facility] (Lab) [address] [place], [address], 02/03/2024 13:01:30 02/03/20 24 02/03/2024 CBC/C OMPLE TE BLD COUNT W/DIF F neutrophils, absolute count 6.16 x10'3 /uL 1.5-8. 0 Not Available [facility] (Lab) [address] [place], [address], 02/03/2024 13:01:30 02/03/20 24 02/03/2024 CBC/C OMPLE TE BLD COUNT W/DIF F lymphocytes, absolute count 2.26 x10'3 /uL 1.07-3 .43 Not Available [facility] (Lab) [address] [place], [address], 02/03/2024 13:01:30 02/03/20 24 02/03/2024 CBC/C OMPLE TE BLD COUNT W/DIF F monocytes, absolute count 0.90 x10'3 /uL 0.29-0 .99 Not Available [facility] (Lab) [address] [place], [address], 02/03/2024 13:01:30 02/03/20 24 02/03/2024 CBC/C OMPLE TE BLD COUNT W/DIF F eosinophils, absolute count 0.35 x10'3 /uL 0.02-0 .53 Not Available [facility] (Lab) [address] [place], [address], 02/03/2024 13:01:30 02/03/20 24 02/03/2024 CBC/C OMPLE TE BLD COUNT W/DIF F basophils, absolute count 0.04 x10'3 /uL 0.01-0 .08 Not Available [facility] (Lab) [address] [place], [address], 02/03/2024 13:01:30 02/03/20 24 02/03/2024 CBC/C OMPLE TE BLD COUNT W/DIF F immature granulocytes ,absolute 0.07 x10'3 /uL 0.00-0 .05 high Not Available [facility] (Lab) [address] [place], [address], 02/03/2024 13:01:30 02/03/20 24 02/03/2024 CBC/C OMPLE TE BLD COUNT W/DIF F nucleated red blood cells 0.0 % -0 Not Available [facility] (Lab) [address] [place], [address], 02/03/2024 13:01:30 02/03/20 24 02/03/2024 CBC/C OMPLE TE BLD COUNT W/DIF F NRBC# 0.00 x10'3 /uL Not Available [facility] (Lab) [address] [place], [address], 02/03/2024 13:01:30 02/03/20 24 02/03/2024 HEPAT IC/LI YOVANY PANEL alkaline phosphatase 66 U/L 38-126 Not Available [facility] (Lab) [address] [place], [address], 02/03/2024 14:31:38 02/03/20 24 02/03/2024 HEPAT IC/LI YOVANY PANEL alanine aminotransfe rase 23 U/L 0-35 Not Available [facility] (Lab) [address] [place], [address], 02/03/2024 14:31:38 02/03/20 24 02/03/2024 HEPAT IC/LI YOVANY PANEL aspartate aminotransfe rase 43 U/L 15-37 high Not Available [facility] (Lab) [address] [place], [address], 02/03/2024 14:31:38 02/03/20 24 02/03/2024 HEPAT IC/LI YOVANY PANEL bilirubin, total 0.60 mg/dL 0.20-1 .30 Not Available [facility] (Lab) [address] [place], [address], 02/03/2024 14:31:38 02/03/20 24 02/03/2024 HEPAT IC/LI YOVANY PANEL bilirubin, conjugated (direct) 0.00 mg/dL 0.00-0 .30 Not Available [facility] (Lab) [address] [place], [address], 02/03/2024 14:31:38 02/03/20 24 02/03/2024 HEPAT IC/LI YOVANY PANEL biliurubin,u ncong. (indirect) 0.30 mg/dL 0.00-1 .1 Not Available [facility] (Lab) [address] [place], [address], 02/03/2024 14:31:38 02/03/20 24 02/03/2024 HEPAT IC/LI YOVANY PANEL total protein 6.8 g/dL 6.3-8. 2 Not Available [facility] (Lab) [address] [place], [address], 02/03/2024 14:31:38 02/03/20 24 02/03/2024 HEPAT IC/LI YOVANY PANEL albumin 4.1 g/dL 3.0-4. 4 Not Available [facility] (Lab) [address] [place], [address], 02/03/2024 14:31:38 02/03/20 24 02/03/2024 HEPAT IC/LI YOVANY PANEL globulin 2.7 g/dL 2.6-4. 2 Not Available [facility] (Lab) [address] [place], [address], 02/03/2024 14:31:38 02/03/20 24 02/03/2024 HEPAT IC/LI YOVANY PANEL A/G ratio 1.5 ratio 1.0-2. 0 Not Available [facility] (Lab) [address] [place], [address], 02/03/2024 14:31:38 02/03/20 24 02/03/2024 BASIC METAB OLIC PANEL sodium 140 mmol/ L 137-14 5 Not Available [facility] (Lab) [address] [place], [address], 02/03/2024 14:31:44 02/03/20 24 02/03/2024 BASIC METAB OLIC PANEL potassium 4.7 mmol/ L 3.5-5. 1 Not Available [facility] (Lab) [address] [place], [address], 02/03/2024 14:31:44 02/03/20 24 02/03/2024 BASIC METAB OLIC PANEL chloride 110 mmol/ L 98-107 high Not Available [facility] (Lab) [address] [place], [address], 02/03/2024 14:31:44 02/03/20 24 02/03/2024 BASIC METAB OLIC PANEL carbon dioxide 26 mmol/ L 22-30 Not Available [facility] (Lab) [address] [place], [address], 02/03/2024 14:31:44 02/03/20 24 02/03/2024 BASIC METAB OLIC PANEL anion gap 8.7 mmol/ L 14-22 low Not Available [facility] (Lab) [address] [place], [address], 02/03/2024 14:31:44 02/03/20 24 02/03/2024 BASIC METAB OLIC PANEL glucose 109 mg/dL 70-99 high Not Available [facility] (Lab) [address] [place], [address], 02/03/2024 14:31:44 02/03/20 24 02/03/2024 BASIC METAB OLIC PANEL BUN 15 mg/dL 8-19 Not Available [facility] (Lab) [address] [place], [address], 02/03/2024 14:31:44 02/03/20 24 02/03/2024 BASIC METAB OLIC PANEL creatinine 0.73 mg/dL 0.66-1 .25 Not Available [facility] (Lab) [address] [place], [address], 02/03/2024 14:31:44 02/03/20 24 02/03/2024 BASIC METAB OLIC PANEL GFR >60 Refer ence Range : [place] ge GFR Healt hy Adult : >60 [...] calcu lator is avail able on the [facility] websi te: [email or web address] :[email or web address] [email or web address] ional [email or web address] qi/gf r_cal culat or Not Available [facility] (Lab) [address] [place], [address], 02/03/2024 14:31:44 02/03/20 24 02/03/2024 BASIC METAB OLIC PANEL calcium 9.7 mg/dL 8.4-10 .2 Not Available [facility] (Lab) [address] [place], [address], 02/03/2024 14:31:44 03/13/20 24 03/13/2024 urina lysis , dipst ick Leukocytes (reference range: negative olga/ l) Negati ve Not Available [address], [address], 03/13/2024 10:27:44 03/13/20 24 03/13/2024 urina lysis , dipst ick Nitrite (reference rage: negative mg/dl) negati ve Not Available [address], [place], [address], 03/13/2024 10:27:44 03/13/20 24 03/13/2024 urina lysis , dipst ick Urobilinogen (reference range: 0.2-1 mg/dl) 1 Not Available [address], [place], [address], 03/13/2024 10:27:44 03/13/20 24 03/13/2024 urina lysis , dipst ick Protein (reference range: negative mg/dl) Negati ve Not Available [address], [place], [address], 03/13/2024 10:27:44 03/13/20 24 03/13/2024 urina lysis , dipst ick pH (reference range: 5-7) 5.0 Not Available [address], [place], [address], 03/13/2024 10:27:44 03/13/20 24 03/13/2024 urina lysis , dipst ick Blood (reference range: negative Chucho/ l) Negati ve Not Available [address], [place], [address], 03/13/2024 10:27:44 03/13/20 24 03/13/2024 urina lysis , dipst ick Specific [place] (reference range: 1.005-1.030) 1.030 Not Available [address], [place], [address], 03/13/2024 10:27:44 03/13/20 24 03/13/2024 urina lysis , dipst ick Ketone (reference range: negative mg/dl) Negati ve Not Available [address], [place], [address], 03/13/2024 10:27:44 03/13/20 24 03/13/2024 urina lysis , dipst ick Bilirubin (reference range: negative mg/dl) Negati ve Not Available [address], [place], [address], 03/13/2024 10:27:44 03/13/20 24 03/13/2024 urina lysis , dipst ick Glucose (reference range: negative mg/dl) 500 Not Available [address], [place], [address], 03/13/2024 10:27:44 03/13/20 24 03/13/2024 urina lysis , dipst ick Appearance Clear Not Available [facility] [address], [place], [address], 03/13/2024 10:27:44 03/13/20 24 03/13/2024 urina lysis , dipst ick Color Yellow Not Available [facility] [address], [place], [address], 03/13/2024 10:27:44 09/18/19 24 09/18/2023 LDCT, chest , for lung cance r scree nona No observ ation record ed. [email or web address] [facility] [address] [place], [address], 11/13/2023 08:16:43 01/21/20 24 01/21/2024 MAMMO , scree nona, digit al, bilat eral No observ ation record ed. [email or web address] [place] [address] [address], [place], [address], 03/24/2024 08:02:28 Result Notes None recorded. Problems Name Problem SNOMED Code Status Onset Date Resolution Date Notes Provider Name and Address Organization Details Recorded Time Hyperlipid emia 06115767 Active 2018 Not Available [employer] 4 10:35:29 Diabetes mellitus 62823966 Active 2018 Not Available [facility] 4 10:35:29 Depressive disorder 81332834 Active 2018 Not Available [facility] 4 10:35:29 Hypothyroi dism 11475115 Active 2018 Not Available [facility] 4 10:35:29 Pain of left knee joint 9319097319319 07 Active 2021 Not Available [employer] 4 10:35:29 Overactive urinary bladder 991933648 Active 2022 Not Available [facility] 4 10:35:29 Flatulence , eructation and gas pain 000477786 Active 2022 Not Available [facility] 4 10:35:29 Obesity 606077340 Active 2022 Not Available [facility] 4 10:35:29 Dyspnea 800047973 Active 2022 Not Available [facility] 4 10:35:29 Hyperglyce evert due to type 2 diabetes mellitus 4166235027760 09 Active 2022 Not Available [facility] 4 10:35:29 Flatulence symptom 777809417 Active 2022 Not Available [facility] 4 10:35:29 Osteoarthr itis of left knee joint 4588176367927 09 Active 2022 Not Available [facility] 4 10:35:29 Pain of bilateral hands 0219178942768 9109 Active 2022 Not Available [facility] 4 10:35:29 Essential hypertensi on 21400895 Active 2023 Danny Dubon MD [address] [address], [place], [address] , [employer] [facility] [employer] [facility] 4 08:09:01 Unexplaine d recurrent falls 834298813 Active 2023 Danyn Dubon MD [address] [address], [place], [address] , [employer] [facility] [employer] [facility] 4 08:12:48 Bilateral thumb pain 0409208432004 9102 Active 2023 Danny Dubon MD [address], [place], [address] , [employer] [facility] [employer] [facility] 4 08:14:44 Liver enzymes level above reference range 087771609 Active 2023 Danny Dubon MD [address], [place], [address] , [employer] [facility] [employer] [facility] 4 08:37:00 Dysuria 94965819 Active 2023 ZITA Dixon-Oseas [address], [facility] [address], [place], [address] , [facility] [employer] [facility] 4 10:27:12 Swelling of bilateral lower limbs 063658608 Active 2023 SHEA DixonP-C [address], [facility] [address], [place], [address] , [facility] [employer] [facility] 4 10:59:17 Notes:underactive thyroid di sease Some problems listed in Document: #[id number] could not be added to this patient's chart. Please review this document and add these problems to the patient's chart manually as needed. Problem Notes None recorded. Medical Equipment None Reported. Allergies Allergen ID Allergen Name Allergen Category Reaction Reaction Severity Criticality Documentation Date Start Date Code Code System Note Provider Name and Address Organization Details Recorded Time 68085 niacin medicatio n edema Not available Not available 10/24/2022 7393 RxNorm Not Available [facility] 3 21:01:21 Medications Name Sig Start [...] Not Available azithromyci n 250 mg tablet 03/06 completed Not Available Not Available Not [...] Not Available levothyroxi ne 88 mcg tablet active Not Available Not Available Not Available amoxicillin 875 mg tablet Take 1 [...] suspension for injection in office 2023 active [facility]: 0003- 0494- 20 Not Available Not Available [...] 08/30/2023 167.64 cm SAMY Rodas [place] [facility] [employer] 08/30/2023 11:31:40 Date Recorded Body height Body mass index (BMI) Body weight Body temperature Heart rate Oxygen saturation Oxygen saturation in Arterial blood by Pulse oximetry Systolic And Diastolic Provider Name and Address Organization Details Last Updated DateTime 4 167.64 cm 33.6 kg/m2 08544.2 1 g 97.2 [degF] 66 /min 95 % 95 % 138/74 mm[Hg] Karlo Valentin RN [facility] [employer] [facility] 4 08:00:24 Date Recorded Body height Provider Name an d Address Organization Details Last Updated DateTime 12/09/2023 167.64 cm [facility] 12/09/2023 14:11:22 Date Recorded Body height Body mass index (BMI) Body weight Body temperature Heart rate Oxygen saturation Oxygen saturation in Arterial blood by Pulse oximetry Systolic And Diastolic Provider Name and Address Organization Details Last Updated DateTime 4 167.64 cm 32.8 kg/m2 28110.2 5 g 97.6 [degF] 63 /min 97 % 97 % 132/60 mm[Hg] Tegan Carson RN [facility] [employer] [facility] 4 10:22:31 Date Recorded Body height Body mass index (BMI) Body weight Body temperature Heart rate Oxygen saturation Oxygen saturation in Arterial blood by Pulse oximetry Systolic And Diastolic Provider Name and Address Organization Details Last Updated DateTime 4 167.64 cm 32.3 kg/m2 05582.4 7 g 97.4 [degF] 62 /min 97 % 97 % 138/70 mm[Hg] Tegan Carson RN [facility] [employer] [facility] 4 10:43:17 Social History Question Answer Notes LastModified by Organizat ion Details LastModified Time Tobacco Smoking Status Former Smoker Not Available [facility] 10/24/2022 20:58:49 Do You Have An Advance Directive? No MIGRATION.[id number] Information not available 10/24/2022 Are You Blind Or Do You Have Difficulty Seeing? No MIGRATION.513623 0687 Information not available 10/24/2022 What Is Your Level Of Caffeine Consumption? Occasional MIGRATION.873675 0053 Information not available 10/24/2022 In The 14 Days Before Symptom Onset, Have You Had Close Contact With A Laboratory-confir med COVID-19 While That Case Was Ill? No MIGRATION.649396 1746 Information not available 10/24/2022 In The 14 Days Before Symptom Onset, Have You Had Close Contact With A Person Who Is Under Investigation For COVID-19 While That Person Was Ill? No MIGRATION.979104 9418 Information not available 10/24/2022 Are You Deaf Or Do You Have Serious Difficulty Hearing? No MIGRATION.017364 7769 Information not available 10/24/2022 What Type Of Diet Are You Following? REGULAR MIGRATION.568439 4308 Information not available 10/24/2022 When Did You Quit Smoking? 11-15yearssinc elastcigarette MIGRATION.119174 1961 Information not available 10/24/2022 Do You Have A Medical Power Of Junior Programmer Analyst? No MIGRATION.332244 1972 Information not available 10/24/2022 What Was The Date Of Your Most Recent Tobacco Screening? 06/07/2021 MIGRATION.897192 6712 Information not available 10/24/2022 Have You Recently Traveled Abroad? No MIGRATION.853119 7074 Information not available 10/24/2022 Do You Have Difficulty Walking Or Climbing Stairs? No MIGRATION.853169 1957 Information not available 10/24/2022 Are You Currently In School? No MIGRATION.606881 8813 Information not available 10/24/2022 Do You Have Any Dietary Restrictions? No MIGRATION.441789 2075 Information not available 10/24/2022 Sex: Unknown Functional Status Question Answer Note LastModified by Organizat ion Details LastModified Time Do you or have you ever used any other forms of tobacco or nicotine? No MIGRATION.6785902 026 Information not available 10/24/2022 What is your level of alcohol consumption? None MIGRATION.4821519 026 Information not available 10/24/2022 Do you have access to reliable transportation? No MIGRATION.2323784 026 Information not available 10/24/2022 Are you able to walk independently without assistance or assistive devices? YESWOREST MIGRATION.0130913 026 Information not available 10/24/2022 Do you have difficulty doing errands alone? No MIGRATION.3102307 026 Information not available 10/24/2022 Are you able to care for yourself independently? Yes MIGRATION.8750700 026 Information not available 10/24/2022 Do you have difficulty dressing, bathing, grooming, or toileting? No MIGRATION.2050202 026 Information not available 10/24/2022 What is your exercise level? None MIGRATION.9988848 026 Information not available 10/24/2022 Mental Status Question Answer Note LastModified by Organizat ion Details LastModified Time Do you have difficulty concentrating, remembering or making decisions? No MIGRATION.[id number] 6 Information not available 10/24/2022 Family History Relationship Description Onset Age of this Age Resolved Age Notes LastModified by Organization Details LastModified Time Mother Diabetes mellitus MIGRATION.678 [id number] Not available 10/24/2022 20:58:55 Sister Diabetes mellitus MIGRATION.012 [id number] Not available 10/24/2022 20:58:55 Brother Diabetes mellitus MIGRATION.359 2406066 Not available 10/24/2022 20:58:55 Father Heart disease [email or web address] Not available 2022 11:26:08 Mother Heart disease [email or web address] Not available 2022 11:26:08 Sister Family history of malignant neoplasm [email or web address] Not available 2022 11:26:18 Medical History Condition Response BLINDNESS N KIDNEY STONES N MRSA N CARPAL TUNNEL SYNDROME N LUNG DISEASE/DISORDER N HISTORY OF DRUG ABUSE N COPD Y RADIATION / CHEMOTHERAPY N SPORTS INJURY N ANKLE PAIN N BLOOD DISEASES N SCHIZOPHRENIA N SHINGLES N SHOULDER PAIN N DEPRESSION (INCLUDING POST ) N BOWEL PROBLEMS N STROKE/TIA N KNEE PAIN N ULCERS [...] N NEUROPATHY N AIDS/HIV N FRACTURES N HYPERTENSION Y ELBOW PAIN N TOURETTE'S N Metal allergy N ANXIETY DISORDER N BLOOD TRANSFUSION N ANEMIA/BLOOD DISORDER N BIPOLAR DISORDER N BRONCHITIS N OSTEOARTHRITIS N TUBERCULOSIS N FOOT PROBLEM N HEART VALVE DISORDERS N ALLERGIES/HAYFEVER N SOFT TISSUE INJURY N INFECTIOUS DISEASE N HEART ARRHYTHMIA N INSOMNIA N HIGH CHOLESTEROL / HYPERLIPIDEMIA N RHEUMATOID ARTHRITIS N EDEMA N CHRONIC PAIN SYNDROME N CAROTID BLOCKAGE N BACK / NECK PROBLEMS N HAVE YOU BEEN HOSPITALIZED OR SEEN IN [facility] IN THE PAST YEAR ? N BURSITIS N HERNIATED DISC N DIALYSIS N FIBROMYALGIA N OSTEOPOROSIS N ARTHRITIS Y NO SIGNIFICANT PAST MEDICAL HISTORY N PERIPHERAL NEUROPATHY N DIABETES, TYPE Y HEARTBURN / REFLUX N HEPATITIS / LIVER DISEASE N GOUT N ALZHEIMER'S DISEASE N SLEEP DISORDER N HERPES N HEADACHES/MIGRAINES N SEIZURES/EPILEPSY N VASCULAR DISEASE N Blood Disorder N HIP PAIN N DIZZINESS N HEAD TRAUMA OR INJURY N HEART DISEASE/HEART PROBLEMS N MULTIPLE SCLEROSIS N CANCER: SPECIFY N CARDIAC ARRHYTHMIA N ANESTHESIA COMPLICATIONS N ATRIAL FIBRILLATION N AUTOIMMUNE DISEASE N Gynecological History Statement/Question Response Current Control Method Menopause Date of Last Colonoscopy Obstetrics History GPAL:G 1 P 0 0 0 0 Immunizations Vaccine Type Date Status Note Provider Nam e and Address Organization Details Recorded Time Influenza, high-dose, quadrivalent, PF 2 completed Not Available [facility] 09/18/2023 10:35:30 Pneumococcal conjugate PCV 13 1 completed Not Available [facility] 09/18/2023 10:35:30 Influenza, high-dose, quadrivalent, PF 1 completed Not Available [facility] 09/18/2023 10:35:29 Influenza, high-dose, quadrivalent, PF 0 completed Not Available [facility] 09/18/2023 10:35:30 pneumococcal polysaccharide PPV23 0 completed Not Available [facility] 09/18/2023 10:35:30 Past Encounters Encounter ID Performer Location Encounter Start Date Encounter Closed Date Diagnosis/Indication Diagnosis SNOMED-CT Code Diagnosis ICD10 Code Diagnosis IMO Codes Diagnosis Note [id number] Danny Dubon MD [facility] Primary [facility] [place] [address] [facility] [address] [place] [address] 06/07/2021 00:00:00 06/16/2021 10:22:45 [id number] Danny Dubon MD [facility] [place] [address] [facility] [address] [place] [address] 12/12/2021 00:00:00 12/22/2021 10:58:57 [id number] EVELYN Clay [facility] Primary [place] [address] [facility] [address] [place] [address] 02/23/2022 00:00:00 02/23/2022 10:50:04 [id number] Roney Feng MD [facility] [address] [place] [address] 05/24/2022 00:00:00 05/24/2022 11:58:00 [id number] Danny Dubon MD [facility] Primary Care [facility] [address] [facility] [address] [place] [address] 07/12/2022 00:00:00 07/12/2022 14:38:57 [id number] Danny Dubon MD [facility] Primary Care [facility] [address] [facility] [address] [place] [address] 08/10/2022 00:00:00 08/10/2022 10:13:38 [id number] Martin Castellanos MD [facility] [place] [address] [place] [address] 08/29/2022 00:00:00 08/29/2022 17:13:20 [id number] ZITA Smith [facility] Primary Care [facility] [address] [facility] [address] [place] [address] 11/09/2022 16:36:59 11/09/2022 17:33:40 Overactive urinary bladder 247393692 N32.81 ChronicImp roved with MyrbetriqW ill give samples and refill Flatulence , eructation and gas pain 360817936 R14.1 R14.2 R14.3 New problemPt to call sister for name of the medication and then call us for rx. Hyperlipidemia 21599628 E78.5 Z79.899 Discussed need for regular exercise, increase intake of water/vege tables/fib er. Decrease the amount of greasy/fat ty/fried foods in diet. Consider/s tart taking a daily fish oil supplement . Hypothyroidism 49485777 E03.9 Diabetes mellitus 006832 09 E11.9 BddrlhiZ2K 6.6 (07/12/22) ; 7.0 (11/09/22)D iscussed need for regular exercise, increase intake of water/vege tables/fib er. Decrease intake of carbs, especially white rice/pasta /flour/christine ad/sugar. Obesity 624997885 E66.9 Not improved despite report of dieting/li [...] Try to keep daily calorie count btw 3505-9502 calories. Gave meal planning handout. May need to consider referral to soda maker/ nutritioni st as well.Ok to resume phentermin e as directed. Reviewed risk of abuse/misu se. Pt agrees to take only as directed and guard from theft. Dyspnea 559533740 R06.00 Chronic, recurrentE ncouraged to use rescue inhaler more frequently when symptomati c.Instruct ed on correct inhaler use. Avoid any triggers such as dust, chemicals, smoke. With continued sx, may need to start Montelukas t or try combo inhaler. [id number] ZITA Smith [facility] [address] [place] [address] 11/21/2022 12:39:20 11/21/2022 14:13:33 Hyperglycemia due to type 2 diabetes mellitus 4284781628 52642 E11.65 JaunwdyT4W 6.6 (07/12/22) ; 7.0 (11/09/22)D iscussed need for regular exercise, increase intake of water/vege tables/fib er. Decrease intake of carbs, especially white rice/pasta /flour/christine ad/sugar.I ncrease metformin to 500mg (2 tabs) BIDMay consider addition of GLP-1 in the future. Obesity 958658378 E66.9 Not improved despite report of dieting/li [...] Try to keep daily calorie count btw 0288-0977 calories. Gave meal planning handout last visit. May need to consider referral to soda maker/ nutritioni st as well.Curry samano phentermin e as directed. Reviewed risk of abuse/misu se. Pt agrees to take only as directed and guard from theft.Sinc e pt is diabetic, may consider the addition of GLP-1 to aid weight loss efforts and reduce blood sugars. Flatulence , eructation and gas pain 309363763 R14.1 R14.2 R14.3 No improvemen t since last visitNew rx for Gas-X Extra Strength 125mg cap per pt request. Hyperlipidemia 48445733 E78.5 Z79.899 StableTrig s 162 (11/09/22)D iscussed need for regular exercise, increase intake of water/vege tables/fib er. Decrease the amount of greasy/fat ty/fried foods in diet. Consider taking a daily fish oil supplement . Hypothyroidism 84968290 E03.9 StableTSH wnl (11/09/22)C ontinue levothyrox ine 88mcg daily [id number] Roney Feng MD [facility] [address] [place] [address] 11/22/2022 10:03:39 11/22/2022 11:02:43 Osteoarthritis of left knee joint 9328185739 17383 M17.12 [id number] Roney Feng MD [facility] [address] [facility] [address] [place] [address] 02/22/2023 10:39:46 02/22/2023 12:06:21 Osteoarthritis of left knee joint 9065366867 15376 M17.12 [id number] Danny Dubon MD [facility] [place] [facility] [address] [facility] [address] [place] [address] 03/06/2023 10:36:27 03/06/2023 11:24:57 Hypothyroidism 38331816 E03.9 Diabetes mellitus 374487 09 E11.9 Pre-surger y evaluation 239772854 Z01.818 Scheduled for 03/22/23.Sh maliha is followed by cardiology (Dr. Al), states he does need to complete clearance unless any other concerns. EKG overall normal in office.Lab s ordered for routine care.Based on visit today, pt. considered low risk and can proceed with surgery. Obesity 377741616 E66.9 Down 6lbs since last visit. She is currently only taking 1/2 tablet.Con tinue weight loss efforts. [id number] Roney Feng MD [facility] [place] [address] [place] [address] 05/31/2023 11:04:53 05/31/2023 12:10:19 Osteoarthritis of left knee joint 5355843424 93986 M17.12 [id number] Roney Feng MD [facility] [place] [address] [place] [address] 08/30/2023 11:18:31 08/30/2023 12:09:59 Osteoarthritis of left knee joint 0828769292 39339 M17.12 [id number] Danny Dubon MD [facility] [place] [facility] [address] [facility] [address] [place] [address] 11/13/2023 07:56:43 11/13/2023 08:36:38 Diabetes mellitus 41949805 E11.9 Hyperlipidemia 37102310 E78.5 Z79.899 Hypothyroidism 10541282 E03.9 Essential hypertension 66771615 I10 stable Unexplaine d recurrent falls 191682078 R29.6 R25.1 neurology referral given Bilateral thumb pain 156 9443245 2804390 M79.644 M79.645 Screening mammography 24 806305 Z12.31 Postmenopausal state 764 42371 Z78.0 [id number] Jose C Guardado MD [facility] [place] [address] [place] [address] 12/09/2023 14:02:28 12/09/2023 16:27:55 Osteoarthritis of left knee joint 1823227388 49733 M17.12 [id number] EVELYN Bragg [facility] Primary Care [address] [place] [address] 03/13/2024 10:10:50 03/13/2024 10:54:37 Dysuria 18236562 R30.0 Adult heal th examination 393310221 Z00.00 Encouraged fresh fruits and veggies-hi gh intake bothIncrea se daily water intake-low intakeEnco urage 30 mins of daily exerciseCo lonoscopy- Well woman exams-DEXA -LDCT- Diabetes m ellitus screening 389742741 Z13.1 Hyperlipid emia screening 467937119 Z13.220 Hyperglyce evert due to type 2 diabetes mellitus 3595669087 05390 E11.65 pt would like to stop taking metformins he would like to try another medication trial ozempicenc ouraged to check blood sugars daily Thyroid di sorder screening 288915143 Z13.29 Anemia screening 7950227 07 Z13.0 [id number] ALLYSON Dixon [facility] Primary Care [address] [place] [address] 04/23/2024 10:38:03 04/23/2024 11:05:07 Hyperglycemia due to type 2 diabetes mellitus 7690090557 65465 E11.65 has been doing well with using ozempicthe highest her bs has been was 120refill given Swelling o f bilateral lower limbs 669749648 M79.89 limit salt intakeelev ated feet intermitte ntly throughout the dayensure adequate hydration/ urinationc ompression stocking ordered Health Concerns Section Related Observation LastModified by Organization Detai ls LastModified Time None Recorded Concern Status LastModified by Organization Details LastModified Time None Recorded Advance Directives Directive N: Payers Insurance Date Sequence Insurance Name Policy Number Policy Joshua Covered Member ID Joshua Member ID Guarantor Name 04/20/2024 1 [facility] (MEDICARE REPLACEMENT/A DVANTAGE - PPO) [id number] Dulce Witt [id number] Dulce Witt Notes Date Note Type Note Provider Name and Address Organization Details Recorded Time 11/13/2023 text/html ROS as noted in the HPI was having some falls, loss of balance and tremor she is a very active lady, likes to work in the yard b/l thumb pain, did have shots in the past Danny Dubon MD [address], [place], [address], [employer] 11/24/2023 08:42:48 03/13/2024 text/html pt is here for physical ALLYSON Dixon [address], [place], [address], [employer] 03/13/2024 14:19:02 04/23/2024 text/html pt is here for f/u ALLYSON Dixon [address], [place], [address], [employer] 04/23/2024 11:10:38 OBGyn Episode No OBEpisode recorded.
[2025-05-20 07:05] VITALS: BP 122/60; PULSE 59; RESP 20; TEMP 36; O2SAT 99; BMI 31.2
--- NOTE | 2025-05-20 07:07 | WPDANESEPPF ---
Anes - Initial Pre Proc Eval Procedure: Operation Date: 05/20/25 08:30 Proposed Procedures p EGD & Screening Colonoscopy - Milo Gonzales MD Date/Time: 05/20/25 07:07 Surgeon: Milo Gonzales MD Pre Op Diagnosis: screening/GERD Patient Data Age: 75 Gender: F Height: 1.68 m Weight: 87.8 kg Last Vital Signs Temp 96.8 F L 05/20/25 07:05 Pulse 59 L 05/20/25 07:05 Resp 20 05/20/25 07:05 BP 122/60 05/20/25 07:05 Pulse Ox 99 05/20/25 07:05 O2 Del Method Room Air 05/20/25 07:05 Allergies Allergy/AdvReac Type Severity Reaction Status Date / Time No Known Allergies Allergy Verified 05/04/25 14:29 Home Medications ?Medication ?Instructions ?Recorded ?Confirmed ?Type metformin 500 mg tablet mg PO BID 08/14/24 02/25/25 History Held on 09/03/24. Instructions: Patient no longer taking carvedilol 6.25 mg tablet 6.25 mg PO BID #180 tabs 09/03/24 05/04/25 Rx celecoxib 200 mg capsule 200 mg PO BID PRN pain #180 caps 09/03/24 05/04/25 Rx ezetimibe 10 mg tablet 10 mg PO DAILY #90 tabs 09/03/24 05/20/25 Rx gabapentin 300 mg capsule 300 mg PO QHS #90 caps 09/03/24 05/20/25 Rx mirabegron 50 mg tablet,extended 50 mg PO DAILY #90 tabs 09/03/24 05/20/25 Rx release 24 hr (Myrbetriq) tiotropium bromide 1.25 2 inh inhalation DAILY #4 grams 09/03/24 05/20/25 Rx mcg/actuation mist for inhalation (Spiriva Respimat) semaglutide 0.25 mg or 0.5 mg (2 0.5 mg (0.736 mL) subcut WEEKLY #3 12/04/24 05/20/25 Rx mg/3 mL) subcutaneous pen injector mL (Ozempic) acetaminophen 500 mg capsule 1,000 mg (2 x 500 mg) PO Q8H PRN 01/22/25 05/20/25 Rx pain #60 caps methocarbamol 750 mg tablet 1,500 mg (2 x 750 mg) PO TID #42 01/22/25 05/20/25 Rx tabs albuterol sulfate 90 mcg/actuation 1 - 2 inh inhalation Q4-6H PRN 01/28/25 05/04/25 Rx aerosol inhaler shortness of breath or wheezing #8.5 grams omeprazole 40 mg capsule,delayed 40 mg PO BID #60 caps 02/25/25 05/20/25 Rx release valacyclovir 1 gram tablet 1,000 mg PO TID #30 tabs 03/04/25 05/20/25 Rx (Valtrex) amlodipine 10 mg-benazepril 20 mg 1 cap PO DAILY #90 caps 05/07/25 05/20/25 Rx capsule atorvastatin 40 mg tablet 40 mg PO DAILY #90 tabs 05/07/25 05/20/25 Rx escitalopram oxalate 5 mg tablet 5 mg PO DAILY #90 tabs 05/07/25 05/20/25 Rx levothyroxine 88 mcg tablet 88 mcg PO DAILY #90 tabs 05/07/25 05/20/25 Rx Patient hx anesthesia problems: none Family hx anesthesia problems: none Results Review: All pre-operative results and documents have been reviewed as part of the pre-operative evaluation. [facility] Past Medical History Medical History Herpes zoster Hypersomnia Diabetes mellitus with diabetic neuropathy Depression Stress incontinence Bilateral thumb pain Constipation Rhinitis, chronic Esophageal reflux disease Hyperlipidemia Hypertension Hypothyroid Thyroid disorder Diabetes COPD (chronic obstructive pulmonary disease) Arthritis Surgical History Surgical History History of hysterectomy History of knee surgery Family History Family History Father Heart disease Mother Diabetes mellitus Heart disease Other Acute myocardial infarction Social History Social History Smoking packs per day: 1.5 Smoking cigarettes per day: 30.0 Years smoked: 20 Smoking pack-years: 30.00 Smoking status: Former smoker Tobacco type: cigarettes Second hand tobacco smoke exposure: Yes Alcohol intake: current Substance use: never Substance use type: does not use Do You Feel Safe in your Home?: Yes Lack of Transportation: No Lack of Food: Never True Current Housing: I Have Housing Concerned About Future Housing: No Difficulty Paying Gas/Electric Bills: No Difficulty Paying for Meds: No Currently Unemployed: No Education: High School Diploma/GED Difficulty w/ Childcare or Family Care: No Living arrangements: with family Occupation/Education: retired 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 ) Neurological: alert and oriented Last oral intake: >/= 8 hours ASA classification: III Emergent: no Anesthesia type and monitoring: general and standard monitoring Results Review: All pre-operative results and documents have been reviewed as part of the pre-operative evaluation. HTN, hyperlipidemia, COPD ex smoker quit 1999, DM w good control. GLP 1 off 6 days. Informed Consent: The patient's anesthetic plan and its attendant risks and benefits were discussed with the patient/family/POA. Questions were solicited and answers provided to the satisfaction of the patient/family/POA.
[2025-05-20] MEDS: LACTATED RINGERS 1,000 ML 150 ML IV CONT (07:20)
--- NOTE | 2025-05-20 08:00 | PM.HPGS ---
History of Present Illness History of Present Illness Consent: Risks, benefits, and alternatives have been discussed and questions answered. Patient agrees to proceed with procedure. 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 Also needs screening colonoscopy Review of Systems Review of Systems: All systems reviewed & are unremarkable except as noted in HPI and below PMFSH Past Medical History Medical History Herpes zoster Hypersomnia Diabetes mellitus with diabetic neuropathy Depression Stress incontinence Bilateral thumb pain Constipation Rhinitis, chronic Esophageal reflux disease Hyperlipidemia Hypertension Hypothyroid Thyroid disorder Diabetes COPD (chronic obstructive pulmonary disease) Arthritis Surgical History Surgical History History of hysterectomy History of knee surgery Family History Family History Father Heart disease Mother Diabetes mellitus Heart disease Other Acute myocardial infarction Social History Social History Smoking packs per day: 1.5 Smoking cigarettes per day: 30.0 Years smoked: 20 Smoking pack-years: 30.00 Smoking status: Former smoker Tobacco type: cigarettes Second hand tobacco smoke exposure: Yes Alcohol intake: current Substance use: never Substance use type: does not use Do You Feel Safe in your Home?: Yes Lack of Transportation: No Lack of Food: Never True Current Housing: I Have Housing Concerned About Future Housing: No Difficulty Paying Gas/Electric Bills: No Difficulty Paying for Meds: No Currently Unemployed: No Education: High School Diploma/GED Difficulty w/ Childcare or Family Care: No Living arrangements: with family Occupation/Education: retired 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 Instructions: Patient no longer taking carvedilol 6.25 mg tablet 6.25 mg PO BID #180 tabs 09/03/24 05/04/25 Rx celecoxib 200 mg capsule 200 mg PO BID PRN pain #180 caps 09/03/24 05/04/25 Rx ezetimibe 10 mg tablet 10 mg PO DAILY #90 tabs 09/03/24 05/20/25 Rx gabapentin 300 mg capsule 300 mg PO QHS #90 caps 09/03/24 05/20/25 Rx mirabegron 50 mg tablet,extended 50 mg PO DAILY #90 tabs 09/03/24 05/20/25 Rx release 24 hr (Myrbetriq) tiotropium bromide 1.25 2 inh inhalation DAILY #4 grams 09/03/24 05/20/25 Rx mcg/actuation mist for inhalation (Spiriva Respimat) semaglutide 0.25 mg or 0.5 mg (2 0.5 mg (0.736 mL) subcut WEEKLY #3 12/04/24 05/20/25 Rx mg/3 mL) subcutaneous pen injector mL (Ozempic) acetaminophen 500 mg capsule 1,000 mg (2 x 500 mg) PO Q8H PRN 01/22/25 05/20/25 Rx pain #60 caps methocarbamol 750 mg tablet 1,500 mg (2 x 750 mg) PO TID #42 01/22/25 05/20/25 Rx tabs albuterol sulfate 90 mcg/actuation 1 - 2 inh inhalation Q4-6H PRN 01/28/25 05/04/25 Rx aerosol inhaler shortness of breath or wheezing #8.5 grams omeprazole 40 mg capsule,delayed 40 mg PO BID #60 caps 02/25/25 05/20/25 Rx release valacyclovir 1 gram tablet 1,000 mg PO TID #30 tabs 03/04/25 05/20/25 Rx (Valtrex) amlodipine 10 mg-benazepril 20 mg 1 cap PO DAILY #90 caps 05/07/25 05/20/25 Rx capsule atorvastatin 40 mg tablet 40 mg PO DAILY #90 tabs 05/07/25 05/20/25 Rx escitalopram oxalate 5 mg tablet 5 mg PO DAILY #90 tabs 05/07/25 05/20/25 Rx levothyroxine 88 mcg tablet 88 mcg PO DAILY #90 tabs 05/07/25 05/20/25 Rx Allergies Allergy/AdvReac Type Severity Reaction Status Date / Time No Known Allergies Allergy Verified 05/04/25 14:29 Vital Signs Vital Signs - 24 hr 05/20/25 07:05 Temperature 96.8 F L Pulse Rate 59 L Respiratory Rate 20 Blood Pressure 122/60 Pulse Oximetry 99 Oxygen Delivery Room Air Exam Const: General: comfortable and no acute distress HENMT: Face/Nose/Sinus: Normal nares present Eyes: General: appearance normal, both eyes and all related structures Neck: Neck: no JVD Resp: Auscultation: clear to auscultation bilaterally Cardio: Rate: regular rate Rhythm: regular rhythm GI: Inspection: non-distended GI Palp: Yes Soft to palpation Skin: General skin exam: normal color Neuro: Speech: normal speech Extrem: General: normal to inspection Psych: Mental Status: mental status grossly normal Assessment and Plan Assessment and plan (1) Colon cancer screening: Code(s): Z12.11 - Encounter for screening for malignant neoplasm of colon Status: Acute Assessment and Plan: colonoscopy (2) Esophageal reflux disease: Code(s): K21.9 - Gastro-esophageal reflux disease without esophagitis Status: Acute Assessment and Plan: egd with bx
--- NOTE | 2025-05-20 08:13 | S_PTH ---
PATIENT: Dulce Witt LOC: [facility][id number] AGE/SX: 75/F ROOM: RE05/20/[address]: Milo Gonzales MD : 1950 BED: DIS: 05/20/2025 SPEC #: [id number] RECD: 05/20/25 10:15 STATUS: MALACHI REShayne #: [id number] LINDSEY: 05/20/25 08:[address]: Milo Gonzales DEPT: [facility] Surgical RECD BY: Dot Martinez ENTERED: 05/20/25 10:16 SP TYPE: Surgical OTHR DR: Jonelle Mcwilliams APRN Tissues: A - Esophageal Biopsy B - Gastric Biopsy C - Colon Polypectomy Procedures: Hematoxylin and Eosin Stain Gross and Microscopic Level 4
--- NOTE | 2025-05-20 08:17 | SUR.OPER ---
egd ended at 811 and colonoscopy begun at 826
[2025-05-20 08:32] VITALS: BP 106/65; PULSE 83; RESP 18; O2SAT 99
[2025-05-20 08:42] VITALS: BP 131/64; PULSE 79; RESP 20; O2SAT 99
[2025-05-20 08:52] VITALS: BP 134/78; PULSE 79; RESP 20; O2SAT 99
== END 2025-05-20 09:06 | disposition home or self-care (01) ==
PROVIDERS: PCP Nurse Practitioner Family; Referring Provider Nurse Practitioner; Visit Provider Internal Medicine Gastroenterology
PROC: 0DJ08ZZ Inspection of Upper Intestinal Tract, Via Natural or Artificial Opening Endoscopic (ICD-10-PCS; CPT 45378; principal; 2025-05-20 08:30)
DX: Z12.11 Encounter for screening for malignant neoplasm of colon (principal); D12.3 Benign neoplasm of transverse colon; K64.8 Other hemorrhoids; K64.4 Residual hemorrhoidal skin tags; K57.30 Diverticulosis of large intestine without perforation or abscess without bleeding; K21.9 Gastro-esophageal reflux disease without esophagitis; E78.5 Hyperlipidemia, unspecified; I10 Essential (primary) hypertension; E03.9 Hypothyroidism, unspecified; J44.9 Chronic obstructive pulmonary disease, unspecified; E11.40 Type 2 diabetes mellitus with diabetic neuropathy, unspecified; G47.10 Hypersomnia, unspecified; F32.A Depression, unspecified; N39.3 Stress incontinence (female) (male); J31.0 Chronic rhinitis; M19.90 Unspecified osteoarthritis, unspecified site; E66.9 Obesity, unspecified; Z68.31 Body mass index [BMI] 31.0-31.9, adult; Z79.84 Long term (current) use of oral hypoglycemic drugs; Z79.1 Long term (current) use of non-steroidal anti-inflammatories (NSAID); Z79.85 Long-term (current) use of injectable non-insulin antidiabetic drugs; Z79.51 Long term (current) use of inhaled steroids; Z98.890 Other specified postprocedural states; Z87.891 Personal history of nicotine dependence; Z82.49 Family history of ischemic heart disease and other diseases of the circulatory system
CPT/HCPCS: 43239; 45380; 82948; 88305; J1596; J2003; J2704; J7120